=== PATIENT | female | born 1955 | race American Indian/Alaskan Native ===

== ENCOUNTER 2018-10-12 14:02 | Inpatient (IN) | payer MEDICARE ==
[2018-10-13] MEDS ORDERED: MILK OF MAGNESIA PO PRN (14:24)
[2018-10-13] MEDS ORDERED: D50W (25GM) Syringe IV PRN (14:24)
[2018-10-13] MEDS ORDERED: SENOKOT PO PRN (14:24)
[2018-10-13] MEDS ORDERED: DULCOLAX PR PRN (14:24)
--- NOTE | 2018-10-13 15:33 | History and Physical Report ---
History of Present Illness Date: 10/13/18 Referring Facility: [facility] Referring physician: Umberto Spencer MD Chief Complaint: Right MCA CVA History of present illness: 63-year-old right-hand dominant female was found on the floor with left-sided weakness by her daughter. She presented to [facility] was noted to have NIHSS of [address] showed right MCA CVA. She was outside the window for TPA however was a candidate for thrombectomy and after undergoing this procedure was admitted to the ICU. She had fairly recovery from the thrombectomy but still has left-sided weakness. Further workup with labs showed hemoglobin A1c of 10.3, LDL 173, TSH 2.014. She was noted to have elevated troponins without chest pain which was monitored and managed medically. She underwent an echo which showed 30% ejection fraction. During her stay at [facility] she was incidentally found to have a possible right lower lobe pulmonary artery occlusion and a left renal artery occlusion versus stenosis. Daughter states she was told the pulmonary artery occlusion was revisited and determined not to be an issue however I do not have paperwork to confirm that vascular surgery was consult at for the left renal artery occlusion versus severe stenosis and recommended no intervention but did ask for the patient to follow-up in clinic. She was placed on anti-coagulation level of Lovenox. Due to this she was also taken off of her prior Plavix dose. 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 Per review of records the mass has not been biopsied and a malignancy has not been ruled out however the patient's family again states that they have been told this was not cancerous in the past. Plan was also to follow-up for this mass and vascular clinic. 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 She also has a follow-up with neurology in 4-5 weeks. During examination and discussion medications with the patient she states that she does not take statins and has had muscle aches with them in the past. I offered to trial a dose of CoQ10 along with the statin however we do not carry it here. Due to her coronary artery disease and current CVA and is highly recommended that she try the statin in a controlled environment we can adjust if needed and evaluate any issues she may have wall taking it. Patient later stated she had feeling of something being stuck in her throat - LEAD RAMP AGENT will eval swallow. After the patient was medically stabilized they were transferred for further rehabilitation. All available medical records have been reviewed but there are limited records from the acute care hospital. Plan of care was discussed with patient and family. 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 denies: smoking, alcohol abuse, prescription drug abuse, IV drug use Family history: diabetes, stroke Medications and Allergies Allergies Allergy/AdvReac Type Severity Reaction Status Date / Time Tetracyclines AdvReac Unknown Unverified 10/12/18 14:07 Active Meds: Active Medications Amlodipine Besylate (Norvasc) 5 mg PO QDAY TREVIN Aspirin (Halfprin Ec) 81 mg PO QDAY TREVIN Atorvastatin Calcium (Lipitor) 80 mg PO QHS TREVIN Bisacodyl (Dulcolax) 10 mg OR QDAY PRN PRN Reason: Constipation unrelieved by MOM Dextrose (D50w (25gm) Syringe) 50 ml IV PRN PRN PRN Reason: Hypoglycemia Docusate Sodium (Colace) 100 mg PO BID TREVIN Enoxaparin Sodium (Lovenox) 60 mg 1 mg/kg (60 mg) SUB-Q Q12HR TREVIN Insulin Human Lispro (Humalog) 0 unit SUB-Q ACHS TREVIN; Protocol Loratadine (Claritin) 10 mg PO QDAY TREVIN Magnesium Hydroxide (Milk Of Magnesia) 30 ml PO Q4H PRN PRN Reason: Constipation Metoprolol Tartrate (Lopressor) 25 mg PO BID TREVIN Senna (Senokot) 8.6 mg PO Q12H PRN PRN Reason: Laxative Effect Review of Systems All systems: negative (ROS negative for 12 systems except as noted below with pertinent positives and negatives.) Constitutional: weakness, no fever, no chills Ears, nose, mouth and throat: post-nasal drip, no decreased hearing Cardiovascular: high blood pressure, no chest pain, no palpitations, no shortness of breath Respiratory: no cough, no home oxygen Gastrointestinal: constipation, no nausea, no vomiting, no diarrhea Musculoskeletal: muscle weakness, limitation of motion, gait dysfunction Integumentary: no rash, no pruritis, no wounds Neurological: lack of coordination, gait dysfunction, no numbness, no aphasia, no confusion, no double vision Endocrine: high blood sugars Exam - Exam Narrative exam: MUSCULOSKELETAL SPECIALTY EXAM CONSTITUTIONAL: Well developed, well nourished, appropriately groomed. RIGHT hand dominant. LYMPHATIC: No appreciable abnormalities palpable in neck RESPIRATORY: Clear to ascultation bilaterally, no increased work of breathing CARDIOVASCULAR: Regular Rate/ Rhythm, no swelling, edema or tenderness in BUE or BLE. Pulses palpable in all extremities. All extremities warm. GI: + bowel sounds, soft, NTTP, nondistended. INTEGUMENTARY: Normal, no lesion, rash, masses or bruising noted in extremities. MUSCULOSKELETAL: BUE and BLE normal without defect, crepitus, subluxation, effusion, arthritic changes or TTP. SA EF WE EE FF FA HF KE ADF EHL APF R 5/5 5/5 5/5 5/5 5/5 5/5 5/5 5/5 5/5 5/5 5/5 L 3/5 4-/5 4-/5 4-/5 4/5 4/5 3/5 4-/5 3/5 3/5 3/5 ROM is decreased on the left upper and lower extremities (full passive) and within functional limits on the right upper and lower extremities. Tone is decreased on the left upper and lower extremities and normal on the right upper and lower extremities. NEURO: CN II : Visual [place] full to confrontation CN II, III : PERRL CN III, IV, : EOMI CN V : Facial sensation intact CN VII : Left facial droop CN VIII : Hearing intact to finger rustle CN IX, X : Palate/uvula elevate midline, phonation normal CN XI : Intact head rotation bilaterally, decreased shoulder shrug on the left. CN XII : Tongue protrudes to the left Sensation intact in all extremities without extinction. Reflexes 2+ bilaterally at biceps, brachioradialis and patella. No clonus at ankles. Coordination intact in RUE, dysmetria noted on the LUE. No tremor noted in 4 extremities. Naming and repetition intact. Follows 2 step commands. No appreciable Aphasia or Dysarthria POSTURE and GAIT: Sitting posture good. Balance appears reasonable. Gait deferred until seen with therapy. PSYCH: Alert, orientated x3, affect appears euthymic. Insight appears intact. Assessment and Plan Assessment and plan: Patient was assessed and evaluated for Acute Inpatient Rehab Unit. Due to the patients above-mentioned medical complexity, along with decreased functional mobility and self care, this patient continues to require and be appropriate for a comprehensive, multidisciplinary [id number] rehabilitation program. These needs cannot be met in an outpatient or other less intensive setting. The patient would continue to benefit from skilled therapy intervention for at least 3 hours per day, five days a week, with davi hniques specific to the needs of the patient to improve function, activities of daily living, and reintegration into the community. The patient continues to require: -- OT to improve ROM, self-care, and learn use of adaptive equipment -- PT to improve strength and balance, functional transfers, and ambulation with energy conservation techniques to improve functional mobility -- LEAD RAMP AGENT to address cognitive deficits and swallowing ability -- 24 hour RN to ensure and prevent skin breakdown, promote progressive independence while ensuring safety, ensure education regarding medications, and incorporation of the rehabilitation at the bedside -- 24 hour Cage Fighter to coordinate this interdisciplinary program, and to manage/prevent complications as a result of the patients medical comorbidities. -Plan of care by day 4 -Weekly team conferences With such a program, there is a reasonable certainty that the goals individualized for this patient can be achieved within the specified length of stay. I69.354 CVA Non Dom L melisa:Secondary CVA prevention, discussed prognosis and need to control HTN/DM/HLD. Will monitor for shoulder hand syndrome and post stroke depression I69.391 Dysphagia:stated she was cleared at OSH but is now stating sensation of food stuck in throat - LEAD RAMP AGENT will eval I10 Hypertension: continue medications and adjust as needed for normotension E11.9 DM: Poorly controlled, A1c 10.3 at OSH, refused long acting insulin I50.9 CHF: EF 30% monitor for exacerbation and need to diurese I25.9 CAD: s/p stent, cont ASA. Plavix d/c'd due to therapeutic lovenox E78.5 Hyperlipidemia: states she does not want to take statin due to muscle aches in past N18.9 CKD: monitor renal function closely. Refused blood draws at OSH K59.00 Constipation: Bowel program started, monitor Z73.6 ADL dysfunction: OT will work on improving ability to perform ADLs (including assistive devices) to increase independence and decrease caregiver burden and improve functional transfers and mobility training. R26.2 Difficulty walking: PT will work on gait training and proper use of assistive devices and advance as appropriate to use of stairs and outside ambulation on uneven surfaces. R26.81 Unsteadiness on feet: PT will work on improving static and dynamic sitting and standing balance as well as proper use of assistive devices to decrease risk of falls. R26.89 Abnormality of gait: PT will work to improve safety and efficiency of gait through neuromotor training and gait training along with instruction on proper use of assistive devices. M62.81 Muscle weakness: PT & OT will work on strengthening exercises to improve functional strength including mixture of closed and open kinetic chain exercises. R53.81 Debility: PT & OT will work on improving overall functional status to improve participation with ADLs, mobility and social involvement. R53.83 Fatigue: PT & OT will work on improving endurance through aerobic exercises and therapeutic activity while monitoring patients tolerance for acti vity and vital signs as needed. DVT ppx: on therapeutic lovenox for renal artery stenosis and possible pulmonary artery occlusion. Pain: Continue physical modalities in therapy and pain medications as needed to achieve functional pain control. Sleep: Trazodone. Monitor and address as needed. Bowel: Monitor and address as needed. Appetite: Monitor and address as needed. Discharge planning: Pending therapy progress and care plan meeting. Will continue discussion with therapy team, SW, patient and family. Restrictions/ Precautions: Falls WB status: FWB Functional Hx: ADLs: Independent Cognition: Independent Mobility: No AD Barriers to Discharge: Decreased mobility and ability to perform self care, balance deficits, weakness Estimated Length of Stay: 14-21 days Discharge Destination: Home with family POST ADMISSION PHYSICIAN EVALUATION I have examined the patient and find that functional status, medical condition and appropriateness for IRF admission are essentially unchanged from those described in the preadmission screening. Will monitor for worsening s/s associated with the CVA, post stroke depression, shoulder hand syndrome, DVT/PE, bowel and bladder complications and complications due to CHF, DM, HTN and electrolyte abnormalities. Will attempt to avoid occurrence of these issues or treat them if they present themselves.
[2018-10-13] MEDS: HumaLOG SUB-Q SCH (17:00)
[2018-10-13] MEDS ORDERED: LANTUS SUB-Q SCH (22:00)
[2018-10-13] MEDS ORDERED: LOVENOX SUB-Q SCH (22:00)
[2018-10-13] MEDS: LOVENOX SUB-Q SCH (22:26)
[2018-10-13] MEDS: LOPRESSOR PO SCH (22:27)
[2018-10-13] MEDS: COLACE PO SCH (22:27)
[2018-10-13] MEDS: DESYREL PO SCH (22:27)
[2018-10-14] MEDS: HumaLOG SUB-Q SCH ×4 (00:41→17:32)
[2018-10-14 07:57] LABS: Basophils # (Auto) 0.1 K/mm3 (0.0-0.1); Basophils % (Auto) 0.7 % (0.0-1.8); Eosinophils # (Auto) 0.2 K/mm3 (0.0-0.4); Hematocrit 33.9 % (30.3-42.9); Hemoglobin 10.8 gm/dl (10.1-14.3); Lymphocytes # (Auto) 1.4 K/mm3 (1.2-5.4); Lymphocytes % (Auto) 17.6 % (13.4-35.0); Mean Corpuscular HGB Conc 32 % (30-34); Mean Corpuscular Volume 88 fl (79-97); Monocytes % (Auto) 12.5 % (0.0-7.3); Platelet Count 304 K/mm3 (140-440); Red Blood Count 3.85 M/mm3 (3.65-5.03); Red Cell Distribution Width 15.1 % (13.2-15.2)
[2018-10-14 08:19] LABS: Albumin 3.1 g/dL (3.9-5); Calcium 8.6 mg/dL (8.4-10.2)
[2018-10-14] MEDS: COLACE PO SCH ×2 (08:54→21:54)
[2018-10-14] MEDS: NORVASC PO SCH (08:55)
[2018-10-14] MEDS: CLARITIN PO SCH (08:55)
[2018-10-14] MEDS: HALFPRIN EC PO SCH (08:55)
[2018-10-14] MEDS: LOPRESSOR PO SCH ×2 (08:55→21:56)
[2018-10-14] MEDS: LOVENOX SUB-Q SCH ×2 (09:00→21:55)
[2018-10-14] MEDS: DESYREL PO SCH (21:56)
[2018-10-15] MEDS: HumaLOG SUB-Q SCH ×5 (00:18→22:30)
[2018-10-15] MEDS: COLACE PO SCH (07:46)
[2018-10-15] MEDS: HALFPRIN EC PO SCH (08:31)
[2018-10-15] MEDS: LOVENOX SUB-Q SCH ×3 (08:31→21:58)
[2018-10-15] MEDS: CLARITIN PO SCH (08:31)
[2018-10-15] MEDS: NORVASC PO SCH (08:31)
[2018-10-15] MEDS: LOPRESSOR PO SCH ×2 (08:31→21:58)
--- NOTE | 2018-10-15 09:54 | Progress Note ---
Subjective Date of service: 10/15/18 Principal diagnosis: Right MCA CVA Interval history: 63-year-old right-hand dominant female was found on the floor with left-sided weakness by her daughter. She presented to [facility] was noted to have NIHSS of [address] showed right MCA CVA. She was outside the window for TPA however was a candidate for thrombectomy and after undergoing this procedure was admitted to the ICU. She had fairly recovery from the thrombectomy but still has left-sided weakness. Further workup with labs showed hemoglobin A1c of 10.3, LDL 173, TSH 2.014. She was noted to have elevated troponins without chest pain which was monitored and managed medically. She underwent an echo which showed 30% ejection fraction. During her stay at [facility] she was incidentally found to have a possible right lower lobe pulmonary artery occlusion and a left renal artery occlusion versus stenosis. Daughter states she was told the pulmonary artery occlusion was revisited and determined not to be an issue however I do not have paperwork to confirm that vascular surgery was consult at for the left renal artery occlusion versus severe stenosis and recommended no intervention but did ask for the patient to follow-up in clinic. She was placed on anti-coagulation level of Lovenox. Due to this she was also taken off of her prior Plavix dose. 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 Per review of records the mass has not been biopsied and a malignancy has not been ruled out however the patient's family again states that they have been told this was not cancerous in the past. Plan was also to follow-up for this mass and vascular clinic. 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 She also has a follow-up with neurology in 4-5 weeks. Patient is participating in therapy and making reasonable progress. Taking rest breaks as needed. BM not documented, even the patient agreed to take medic ation she has now refused. We will monitor and try to intervene prior to obstruction/obstipation. Denies pain, palpitations, dyspnea, cough, N/V, weakness, or joint pain. She is very sleepy this morning likely due to trazodone. This was substituted for melatonin which we do not have but due to h er reaction to this medication we will stop it. Discussed with her the option of changing to a different statin since she is refusing Lipitor. She refused other statins including Pravachol and Crestor which typically have a decreased risk of causing myalgias. She did agree to take WelChol which should help to control her LDL and reduce risk for CVA recurrence. All records, vitals, labs and medications were reviewed. No other issues per patient, nursing or therapy. Objective - Exam Narrative Exam: MUSCULOSKELETAL SPECIALTY EXAM CONSTITUTIONAL: Well developed, well nourished, appropriately groomed. RIGHT hand dominant. RESPIRATORY: Clear to ascultation bilaterally, no increased work of breathing CARDIOVASCULAR: Regular Rate/ Rhythm, no swelling, edema or tenderness in BUE or BLE. All extremities warm. GI: + bowel sounds, soft, NTTP, nondistended. INTEGUMENTARY: Normal. MUSCULOSKELETAL: BUE and BLE normal without defect, crepitus, subluxation, effusion, arthritic changes or TTP. SA EF WE EE FF FA HF KE ADF EHL APF R 5/5 5/5 5/5 5/5 5/5 5/5 5/5 5/5 5/5 5/5 5/5 L 3/5 4-/5 4-/5 4-/5 4/5 4/5 3/5 4-/5 3/5 3/5 3/5 ROM is decreased on the left upper and lower extremities (full passive) and within functional limits on the right upper and lower extremities. Tone is decreased on the left upper and lower extremities and normal on the right upper and lower extremities. NEURO: CN II-XII grossly intact except for left facial droop, decreased shoulder shrug on the left, tongue protrudes left Sensation intact in all extremities without extinction. Coordination intact in RUE, dysmetria noted on the LUE. No tremor noted in 4 extremities. Follows 2 step commands-less so this morning due to drowsiness. POSTURE and GAIT: Sitting posture good. Balance appears reasonable. Gait deferred until seen with therapy. PSYCH: Drowsy, orientated x3, affect appears euthymic. Insight appears intact. - Allied health notes Allied health notes reviewed: nursing, PT, ST, OT FIMS assessment as documented by PT/OT/ST: Grooming Patient cleans teeth/dentures: Yes Patient condon/brushes hair: No Patient washes, rinses and Yes dries face: Patient washes, rinses and Yes dries hands: Patient performs (no make-up/ 3/4 (75%) shaving): Grooming FIM Score 3. Moderate Assistance (Patient = 50% or more) Toileting Toileting Device Commode over Toilet Toileting FIM Score 2. Maximal Assistance (Patient = 25% or more) Social interaction/Memory/Problem solving Social Interaction FIM Score 5. Supervision (Needs supv. <10%. Needs encouragement to participate.) Memory FIM Score 5. Supervision (Needs cueing <10%, stressful/ unfamiliar situations.) Problem Solving FIM Score 4. Minimal Assistance (Solves routine problems 75-90%.) Transfers Mode of Locomotion: Wheelchair Bed/Chair/Wheelchair Transfers 3. Moderate Assistance (Patient = 50% or more. FIM Score Some lifting.) Toilet Transfers FIM Score 3. Moderate Assistance (Patient = 50% or more. Some lifting.) Patient transferred to: Shower Shower Transfers FIM Score 3. Moderate Assistance (Patient = 50% or more. Some lifting.) Locomotion- Stairs Device used on Stairs Handrail/s Number of Stairs Ascended/ 2 Descended Patient used handrail/support: Yes Stairs FIM Score 1. Total Assistance (Pt. < 25%, 2 person assist, or <4 stairs.) Locomotion- walk/wheelchair Most Frequent Mode of Wheelchair Locomotion: Ambulation Distance 25 Walking FIM Score 1. Total Assistance (Pt. < 25%, 2 or more person assist, or <50 ft.) Wheelchair Propulsion Distance 50 Wheelchair FIM Score 2. Maximal Assistance (Patient = 25% or more. Minimum of 50 ft.) Eating Eating FIM Score 5. Supervision/Set-Up (Needs help w/ containers, cutting meat, etc.) Dressing-Upper body Patient retrieves clothing No items: Patient applies/removes UE n/a prosthesis or orthosis: Upper Body Dressing FIM Score 3. Moderate Assistance (Patient = 50% or more) Dressing-lower body Patient retrieves clothing No items: Patient applies/removes LE n/a prosthesis or orthosis: Lower Body Dressing FIM Score 2. Maximal Assistance (Patient = 25% or more) - Labs CBC & Chem 7: 10/14/18 07:05 10/14/18 07:05 Labs: Laboratory Results - last 72 hr 02/12/19 02/12/19 02/13/19 16:34 23:03 06:29 WBC RBC Hgb Hct MCV MCH MCHC RDW Plt Count Lymph % (Auto) [place] % (Auto) Eos % (Auto) Baso % (Auto) Lymph # [place] # Eos # Baso # Seg Neutrophils % Seg Neutrophils # Sodium Potassium Chloride Carbon Dioxide Anion Gap BUN Creatinine Estimated GFR BUN/Creatinine Ratio Glucose POC Glucose 166 H 248 H 159 H Calcium Total Bilirubin AST ALT Alkaline Phosphatase Total Protein Albumin Albumin/Globulin Ratio 10/14/18 10/14/18 10/14/18 07:05 07:05 11:53 WBC 8.0 RBC 3.85 Hgb 10.8 Hct 33.9 MCV 88 MCH 28 MCHC 32 RDW 15.1 Plt Count 304 Lymph % (Auto) 17.6 [place] % (Auto) 12.5 H Eos % (Auto) 2.0 Baso % (Auto) 0.7 Lymph # 1.4 [place] # 1.0 H Eos # 0.2 Baso # 0.1 Seg Neutrophils % 67.2 Seg Neutrophils # 5.4 Sodium 137 Potassium 4.1 Chloride 100.7 Carbon Dioxide 22 Anion Gap 18 BUN 26 H Creatinine 1.3 H Estimated GFR 50 BUN/Creatinine Ratio 20 Glucose 172 H POC Glucose 157 H Calcium 8.6 Total Bilirubin 0.30 AST 43 H ALT 89 H Alkaline Phosphatase 256 H Total Protein 6.1 L Albumin 3.1 L Albumin/Globulin Ratio 1.0 10/14/18 10/14/18 10/15/18 17:06 23:12 06:11 WBC RBC Hgb Hct MCV MCH MCHC RDW Plt Count Lymph % (Auto) [place] % (Auto) Eos % (Auto) Baso % (Auto) Lymph # [place] # Eos # Baso # Seg Neutrophils % Seg Neutrophils # Sodium Potassium Chloride Carbon Dioxide Anion Gap BUN Creatinine Estimated GFR BUN/Creatinine Ratio Glucose POC Glucose 193 H 169 H 124 H Calcium Total Bilirubin AST ALT Alkaline Phosphatase Total Protein Albumin Albumin/Globulin Ratio Assessment and Plan I69.354 CVA Non Dom L melisa:Secondary CVA prevention, discussed prognosis and need to control HTN/DM/HLD. Will monitor for shoulder hand syndrome and post stroke depression. Refusing statin, have started WelChol. 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 Plavix d/c'd due to therapeutic lovenox E78.5 Hyperlipidemia: states she does not want to take statin due to muscle aches in past, refused other statins that are less likely to cause problems. Agreed to try WelChol. N18.9 CKD: monitor renal function closely. Refused blood draws at OSH K59.00 Constipation: Bowel program started, but she is refusing medications. Monitor Z73.6 ADL dysfunction: OT will work on improving ability to perform ADLs (including assistive devices) to increase independence and decrease caregiver burden and improve functional transfers and mobility training. R26.2 Difficulty walking: PT will work on gait training and proper use of assistive devices and advance as appropriate to use of stairs and outside ambulation on uneven surfaces. R26.81 Unsteadiness on feet: PT will work on improving static and dynamic sitting and standing balance as well as proper use of assistive devices to decrease risk of falls. R26.89 Abnormality of gait: PT will work to improve safety and efficiency of gait through neuromotor training and gait training along with instruction on proper use of assistive devices. M62.81 Muscle weakness: PT & OT will work on strengthening exercises to improve functional strength including mixture of closed and open kinetic chain exercises. R53.81 Debility: PT & OT will work on improving overall functional status to improve participation with ADLs, mobility and social involvement. R53.83 Fatigue: PT & OT will work on improving endurance through aerobic exercises and therapeutic activity while monitoring patients tolerance for activity and vital signs as needed. DVT ppx: on therapeutic lovenox for renal artery stenosis and possible pulmonary artery occlusion. Pain: Continue physical modalities in therapy and pain medications as needed to achieve functional pain control. Sleep: Monitor and address as needed. Previously on melatonin which we do not carry, low-dose trazodone seems to make her too drowsyhave DC'd Bowel: Monitor and address as needed. Appetite: Monitor and address as needed. Discharge planning: Pending therapy progress and care plan meeting. Will continue discussion with therapy team, SW, patient and family. Restrictions/ Precautions: Falls WB status: FWB Functional Hx: ADLs: Independent Cognition: Independent Mobility: No AD Barriers to Discharge: Decreased mobility and ability to perform self care, balance deficits, weakness Estimated Length of Stay: 14-21 days Discharge Destination: Home with family
[2018-10-15] MEDS: WELCHOL PO SCH (22:08)
[2018-10-16] MEDS: HALFPRIN EC PO SCH (08:27)
[2018-10-16] MEDS: WELCHOL PO SCH (08:27)
[2018-10-16] MEDS: LOPRESSOR PO SCH ×2 (08:27→22:12)
[2018-10-16] MEDS: CLARITIN PO SCH (08:28)
[2018-10-16] MEDS: NORVASC PO SCH (08:28)
[2018-10-16] MEDS: HumaLOG SUB-Q SCH ×4 (08:29→22:09)
[2018-10-16] MEDS: LOVENOX SUB-Q SCH ×2 (09:30→22:10)
--- NOTE | 2018-10-16 11:42 | Progress Note ---
Subjective Date of service: 10/16/18 Principal diagnosis: Right MCA CVA Interval history: 63-year-old right-hand dominant female was found on the floor with left-sided weakness by her daughter. She presented to [facility] was noted to have NIHSS of [address] showed right MCA CVA. She was outside the window for TPA however was a candidate for thrombectomy and after undergoing this procedure was admitted to the ICU. She had fairly recovery from the thrombectomy but still has left-sided weakness. Further workup with labs showed hemoglobin A1c of 10.3, LDL 173, TSH 2.014. She was noted to have elevated troponins without chest pain which was monitored and managed medically. She underwent an echo which showed 30% ejection fraction. 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 Daughter states she was told the pulmonary artery occlusion was revisited and determined not to be an issue however I do not have paperwork to confirm that vascular surgery was consult at for the left renal artery occlusion versus severe stenosis and recommended no intervention but did ask for the patient to follow-up in clinic. She was placed on anti-coagulation level of Lovenox. Due to this she was also taken off of her prior Plavix dose. 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 Per review of records the mass has not been biopsied and a malignancy has not been ruled out however the patient's family again states that they have been told this was not cancerous in the past. Plan was also to follow-up for this mass and vascular clinic. Patient is a Sabianism and does not want any blood products. She also has a follow-up with neurology in 4-5 weeks. Patient is participating in therapy and making reasonable progress. Taking rest breaks as needed. BM not documented, and she states that she has not had a bowel movement since her admission to the outside hospital. Denies nausea vomiting but does have a feeling of fullness, abdomen is soft, positive flatus. We will order a KUB to rule out obstruction. She states she did not get suppository that was ordered for yesterday. Ask nursing to her again today. Denies pain, palpitations, dyspnea, cough, N/V, weakness, or joint pain. She is more awake since discontinuing trazodone. She did not like the size of the pill of WelChol so we change that to Questran. Repeat labs have been ordered. Had a prolonged discussion with her daughter yesterday evening prior to leaving concerning various medications. Again discussed with patient her need to be compliant with our attempts to manage her blood glucose and cholesterol in order to reduce her risk of recurrent stroke. She states she is agreeable to taking a long acting insulin now. We will monitor her overnight and start her on something tomorrow based on where her lab values have been. All records, vitals, labs and medications were reviewed. No other issues per patient, nursing or therapy. Objective - Exam Narrative Exam: MUSCULOSKELETAL SPECIALTY EXAM CONSTITUTIONAL: Well developed, well nourished, appropriately groomed. RIGHT hand dominant. RESPIRATORY: Clear to ascultation bilaterally, no increased work of breathing CARDIOVASCULAR: Regular Rate/ Rhythm, no swelling, edema or tenderness in BUE or BLE. All extremities warm. GI: + bowel sounds, soft, NTTP, nondistended. INTEGUMENTARY: Normal. MUSCULOSKELETAL: BUE and BLE normal without defect, crepitus, subluxation, effusion, arthritic changes or TTP. SA EF WE EE FF FA HF KE ADF EHL APF R 5/5 5/5 5/5 5/5 5/5 5/5 5/5 5/5 5/5 5/5 5/5 L 3/5 4-/5 4-/5 4-/5 4/5 4/5 3/5 4-/5 3/5 3/5 3/5 ROM is decreased on the left upper and lower extremities (full passive) and wit hin functional limits on the right upper and lower extremities. Tone is decreased on the left upper and lower extremities and normal on the right upper and lower extremities. NEURO: CN II-XII grossly intact except for left facial droop, decreased shoulder shrug on the left, tongue protrudes left Sensation intact in all extremities without extinction. Coordination intact in RUE, dysmetria noted on the LUE. No tremor noted in 4 extremities. Follows 2 step commands POSTURE and GAIT: Sitting posture good. Balance appears reasonable. Gait deferred until seen with therapy. PSYCH: Awake, orientated x3, affect appears euthymic. Insight appears intact. - Constitutional Vitals: Vital Signs - 12hr 02/10/16/18 10/16/18 05:21 07:35 08:27 Temperature 36.8 C 36.9 C Pulse Rate 76 79 79 Respiratory 18 16 Rate Blood Pressure 118/74 136/88 Blood Pressure 136/88 [Right] O2 Sat by Pulse 99 98 Oximetry 10/16/18 08:28 Temperature Pulse Rate 79 Respiratory Rate Blood Pressure 136/88 Blood Pressure [Right] O2 Sat by Pulse Oximetry - Allied health notes Allied health notes reviewed: nursing, PT, ST, OT FIMS assessment as documented by PT/OT/ST: Grooming Patient cleans teeth/dentures: Yes Patient condon/brushes hair: No Patient washes, rinses and Yes dries face: Patient washes, rinses and Yes dries hands: Patient performs (no make-up/ 3/4 (75%) shaving): Grooming FIM Score 3. Moderate Assistance (Patient = 50% or more) Toileting Toileting Device Commode over Toilet Toileting FIM Score 2. Maximal Assistance (Patient = 25% or more) Social interaction/Memory/Problem solving Social Interaction FIM Score 7. Complete [place] (Interacts appropriately. Controls temper.) Memory FIM Score 7. Complete [place] (Remembers people and routines.) Problem Solving FIM Score 6. Mod. [place] (Mild difficulty or needs more time w/ complex.) Transfers Mode of Locomotion: Wheelchair Bed/Chair/Wheelchair Transfers 3. Moderate Assistance (Patient = 50% or more. FIM Score Some lifting.) Toilet Transfers FIM Score 3. Moderate Assistance (Patient = 50% or more. Some lifting.) Patient transferred to: Shower Shower Transfers FIM Score 3. Moderate Assistance (Patient = 50% or more. Some lifting.) Locomotion- Stairs Device used on Stairs Handrail/s Number of Stairs Ascended/ 2 Descended Patient used handrail/support: Yes Stairs FIM Score 1. Total Assistance (Pt. < 25%, 2 person assist, or <4 stairs.) Locomotion- walk/wheelchair Most Frequent Mode of Wheelchair Locomotion: Ambulation Distance 25 Walking FIM Score 1. Total Assistance (Pt. < 25%, 2 or more person assist, or <50 ft.) Wheelchair Propulsion Distance 50 Wheelchair FIM Score 2. Maximal Assistance (Patient = 25% or more. Minimum of 50 ft.) Eating Eating FIM Score 5. Supervision/Set-Up (Needs help w/ c ontainers, cutting meat, etc.) Dressing-Upper body Patient retrieves clothing No items: Patient applies/removes UE n/a prosthesis or orthosis: Upper Body Dressing FIM Score 3. Moderate Assistance (Patient = 50% or more) Dressing-lower body Patient retrieves clothing No items: Patient applies/removes LE n/a prosthesis or orthosis: Lower Body Dressing FIM Score 2. Maximal Assistance (Patient = 25% or more) - Labs CBC & Chem 7: 10/14/18 07:05 10/14/18 07:05 Labs: Laboratory Results - last 72 hr 10/13/18 10/13/18 10/14/18 16:34 23:03 06:29 WBC RBC Hgb Hct MCV MCH MCHC RDW Plt Count Lymph % (Auto) [place] % (Auto) Eos % (Auto) Baso % (Auto) Lymph # [place] # Eos # Baso # Seg Neutrophils % Seg Neutrophils # Sodium Potassium Chloride Carbon Dioxide Anion Gap BUN Creatinine Estimated GFR BUN/Creatinine Ratio Glucose POC Glucose 166 H 248 H 159 H Calcium Total Bilirubin AST ALT Alkaline Phosphatase Total Protein Albumin Albumin/Globulin Ratio 10/14/18 10/14/18 10/14/18 07:05 07:05 11:53 WBC 8.0 RBC 3.85 Hgb 10.8 Hct 33.9 MCV 88 MCH 28 MCHC 32 RDW 15.1 Plt Count 304 Lymph % (Auto) 17.6 [place] % (Auto) 12.5 H Eos % (Auto) 2.0 Baso % (Auto) 0.7 Lymph # 1.4 [place] # 1.0 H Eos # 0.2 Baso # 0.1 Seg Neutrophils % 67.2 Seg Neutrophils # 5.4 Sodium 137 Potassium 4.1 Chloride 100.7 Carbon Dioxide 22 Anion Gap 18 BUN 26 H Creatinine 1.3 H Estimated GFR 50 BUN/Creatinine Ratio 20 Glucose 172 H POC Glucose 157 H Calcium 8.6 Total Bilirubin 0.30 AST 43 H ALT 89 H Alkaline Phosphatase 256 H Total Protein 6.1 L Albumin 3.1 L Albumin/Globulin Ratio 1.0 10/14/18 10/14/18 10/15/18 17:06 23:12 06:11 WBC RBC Hgb Hct MCV MCH MCHC RDW Plt Count Lymph % (Auto) [place] % (Auto) Eos % (Auto) Baso % (Auto) Lymph # [place] # Eos # Baso # Seg Neutrophils % Seg Neutrophils # Sodium Potassium Chloride Carbon Dioxide Anion Gap BUN Creatinine Estimated GFR BUN/Creatinine Ratio Glucose POC Glucose 193 H 169 H 124 H Calcium Total Bilirubin AST ALT Alkaline Phosphatase Total Protein Albumin Albumin/Globulin Ratio 10/15/18 10/15/18 10/15/18 11:15 16:37 21:50 WBC RBC Hgb Hct MCV MCH MCHC RDW Plt Count Lymph % (Auto) [place] % (Auto) Eos % (Auto) Baso % (Auto) Lymph # [place] # Eos # Baso # Seg Neutrophils % Seg Neutrophils # Sodium Potassium Chloride Carbon Dioxide Anion Gap BUN Creatinine Estimated GFR BUN/Creatinine Ratio Glucose POC Glucose 183 H 157 H 203 H Calcium Total Bilirubin AST ALT Alkaline Phosphatase Total Protein Albumin Albumin/Globulin Ratio 10/16/18 07:49 WBC RBC Hgb Hct MCV MCH MCHC RDW Plt Count Lymph % (Auto) [place] % (Auto) Eos % (Auto) Baso % (Auto) Lymph # [place] # Eos # Baso # Seg Neutrophils % Seg Neutrophils # Sodium Potassium Chloride Carbon Dioxide Anion Gap BUN Creatinine Estimated GFR BUN/Creatinine Ratio Glucose POC Glucose 167 H Calcium Total Bilirubin AST ALT Alkaline Phosphatase Total Protein Albumin Albumin/Globulin Ratio - Imaging and cardiology Abdominal x-ray: pending Assessment and Plan I69.354 CVA Non Dom L melisa:Secondary CVA prevention, discussed prognosis and n eed to control HTN/DM/HLD. Will monitor for shoulder hand syndrome and post stroke depression. Refusing statin, have started WelChol. I69.391 Dysphagia: SOLE RUFFER noted oral phase dysphagia of but no evidence of aspiration, recommended small bites and sitting upright I10 Hypertension: continue medications and adjust as needed for normotension E11.9 DM: Poorly controlled, A1c 10.3 at OSH, refused long acting insulin I50.9 CHF: EF 30% monitor for exacerbation and need to diurese I25.9 CAD: s/p stent, cont ASA. Plavix d/c'd at OSH due to therapeutic lovenox E78.5 Hyperlipidemia: states she does not want to take statin due to muscle aches in past, refused other statins that are less likely to cause problems. Agreed to try Questran, welchol pills were too large. N18.9 CKD: monitor renal function closely. Refused blood draws at OSH K59.00 Constipation: Bowel program started, but she is refusing medications. Monitor. KUB ordered, suppository ordered Z73.6 ADL dysfunction: OT will work on improving ability to perform ADLs (including assistive devices) to increase independence and decrease caregiver burden and improve functional transfers and mobility training. R26.2 Difficulty walking: PT will work on gait training and proper use of assistive devices and advance as appropriate to use of stairs and outside ambulation on uneven surfaces. R26.81 Unsteadiness on feet: PT will work on improving static and dynamic sitting and standing balance as well as proper use of assistive devices to dec rease risk of falls. R26.89 Abnormality of gait: PT will work to improve safety and efficiency of ga it through neuromotor training and gait training along with instruction on proper use of assistive devices. M62.81 Muscle weakness: PT & OT will work on strengthening exercises to improve functional strength including mixture of closed and open kinetic chain exercises. R53.81 Debility: PT & OT will work on improving overall functional status to improve participation with ADLs, mobility and social involvement. R53.83 Fatigue: PT & OT will work on improving endurance through aerobic exercises and therapeutic activity while monitoring patients tolerance for activity and vital signs as needed. DVT ppx: on therapeutic lovenox for renal artery stenosis and possible pulmonary artery occlusion. Pain: Continue physical modalities in therapy and pain medications as needed to achieve functional pain control. Sleep: Monitor and address as needed. Previously on melatonin which we do not carry, low-dose trazodone seems to make her too drowsyhave DC'd Bowel: Monitor and address as needed. Appetite: Monitor and address as needed. Discharge planning: Pending therapy progress and care plan meeting. Will continue discussion with therapy team, SW, patient and family. Restrictions/ Precautions: Falls WB status: FWB Functional Hx: ADLs: Independent Cognition: Independent Mobility: No AD Barriers to Discharge: Decreased mobility and ability to perform self care, balance deficits, weakness Estimated Length of Stay: 14-21 days Discharge Destination: Home with family
--- NOTE | 2018-10-16 11:46 | IRU Plan of Care ---
Interdisciplinary Plan of Care - IP IRU INTERDISCIPLINARY PLAN: [facility] Inpatient Rehab Unit Plan of Care IRU Interdisciplinary Care Plan Start: 10/13/18 15:47 Freq: Admission then PRN Status: Active Protocol: Document 10/16/18 08:51 TH (Rec: 10/16/18 08:59 TH [id number]) Interdisciplinary Problem List Interdisciplinary Problem List Interdisciplinary Problem List Impaired Eating/Swallowing Query Text:Answers will Trigger Problems Impaired Bathing/Grooming and Outcomes on Worklist. Impaired Dressing Impaired Mobility Impaired Transfers Impaired Toileting Knowledge Deficits Impaired Safety Diabetes Education IRU Interdisciplinary Care Plan Therapy Services Therapy Services Will Include: Physical Therapy Query Text:Patient will be seen for a Occupational Therapy minimum of 3 hours of daily therapy 5 Speech Therapy out of 7 days a week. Therapy intensity may be adjusted within a 7 consecutive day period to effectively serve the individual needs of the patient. Treatment Frequency/Intensity/Duration Treatment Frequency 3 hours per day Treatment Intensity 5 days/week Treatment Duration 14-21 days. Problem Area: Eating/Swallowing Eating/Swallowing Outcomes Eating/Swallowing Interventions Problem Area: Bathing/Grooming Bathing/Grooming Outcomes Improve [place] w/ Grooming Improve [place] w/ Bathing Bathing/Grooming Interventions ADL Training Use of Assistive Devices Therapeutic Exercise Therapeutic Activity Neuromuscular Re-Education Balance Work Activity Tolerance Work Patient/Caregiver Education Problem Area: Dressing Dressing Outcomes Improve [place] w/ UB Dressing Improve [place] w/ LB Dressing Dressing Interventions ADL Training Use of Assistive Devices Neuromuscular Re-Education Therapeutic Exercise Balance Work Modalities Patient/Caregiver Education Problem Area: Mobility Mobility Outcomes Improve [place] w/ Bed Mobility Improve [place] w/ Ambulation Improve [place] w/ Stairs /Curb Improve [place] w/ Wheelchair Mobility Interventions Therapeutic Exercise Neuromuscular Re-Ed. Modalities Use of Assistive Devices Patient/Caregiver Education Bed Mobility Work Gait Training W/C Mobility Work Problem Area: Transfers Transfers Outcomes Improve [place] w/ Bed Transfers Improve [place] w/ Toilet Transfers Improve [place] w/ Tub/ Shower Transfers Improve [place] w/ Car Transfers Transfers Interventions Transfer Training Therapeutic Exercise Neuromuscular Re-Education Modalities Use of Assistive Devices Patient/Caregiver Education Problem Area: Bowel/Bladder Managment Bowel/Bladder Outcomes Bowel/Bladder Interventions Problem Area: Toileting Toileting Outcomes Improve [place] w/ Toileting Toileting Interventions ADL Training Balance Work Use of Assistive Devices Patient/Caregiver Education Problem Area: Nutrition Nutrition Outcomes Nutrition Interventions Problem Area: Comprehension Comprehension Outcomes Comprehension Interventions Problem Area: Expression Expression Outcomes Expression Interventions Problem Area: Problem Solving Problem Solving Outcomes Problem Solving Interventions Problem Area: Memory Memory Outcomes Memory Interventions Problem Area: Pain Management Pain Management Outcomes Pain Management Interventions Problem Area: Knowledge Deficits Knowledge Deficits Outcomes Knowledge Deficits Interventions Problem Area: Skin/Tissue Integrity Skin/Tissue Integrity Outcomes Skin/Tissue Integrity Interventions Problem Area: Social Interaction Social Interaction Outcomes Social Interaction Interventions Problem Area: Adjustment to Disability Adjustment to Disability Outcomes Adjustment to Disability Interventions Problem Area: Discharge Concerns Discharge Concerns Outcomes Discharge w/ Necessary Equipment Have Home Health/Outpatient Services Discharge Concerns Interventions Discharge Planning Family/Caregiver Conference Family/Caregiver Training Problem Area: Community Reintegration Community Reintegration Outcomes Community Reintegration Interventions Problem Area: Home Management Home Management Outcomes Improve [place] w/ Home Management Home Management Interventions Clothing Care Activity Tolerance Work Patient/Caregiver Education Problem Area: Safety Safety Outcomes Provide Safe Environment Perform Selfcare Safely Demonstrate Good Safety w/ Transfers/Mobility Safety Interventions Identify Fall Risk [place] Pt. to Environment Reduce Environmental Hazards Problem Area: Medication Education Medication Education Outcomes Patient/Caregiver will Verbalize Understanding of Medications Medication Education Interventions Explain Administration/Side Effects/Interactions Problem Area: Diabetes Education Diabetes Education Outcomes Demonstrate Knowledge of Resources Availlable in Diabetic Ed. Folder Diabetes Education Interventions Discuss Pathophysiology of Diabetes Problem Area: Oxygenation Oxygenation Outcomes Oxygenation Interventions Problem Area: Cardiovascular Cardiovascular Outcomes Cardiovascular Interventions Physician Only Medical Prognosis and Rehabilitation Potential (Completed by Physician) Fair medical prognosis and good rehab potential. Patient is refusing some medications, mainly statins and bowel medications. We have switched to a bile acids clustering agent as an alternative. Have discussed need for much better glucose control. If the patient is able to maintain good glucose control, blood pressure control, and continue to use her secondary stroke prevention measures she has a good chance of continued recovery. On the other hand if she refuses to take the steps her overall prognosis is less than stated and she puts herself at risk of another CVA. These risk have been communicated both to her and her daughter. We'll continue to encourage her to take every step possible to reduce her risk for recurrent CVA. This plan of care has been developed based on the findings from the pre- admission assessment, post admission physician evaluation, information gathered from the assessments from all therapy disciplines and other pertinent clinicians. The plan of care has been reviewed and discussed in collaboration with the interdisciplinary team. The plan of care will be reviewed and updated at least weekly.
--- NOTE | 2018-10-16 13:37 | XRay Report ---
AP ABDOMEN: HISTORY: Constipation. There is moderate stool throughout the colon and rectum. The abdominal gas pattern is unremarkable. No masses or organomegaly is identified and there is no gross evidence of free air or fluid. No significant soft tissue calcifications are noted. Cholecystectomy changes are noted. IMPRESSION: Fecal retention.
[2018-10-16] MEDS ORDERED: DULCOLAX PR ONE (14:00)
[2018-10-16] MEDS: QUESTRAN PO SCH ×2 (15:33→22:12)
[2018-10-17 07:55] LABS: BUN/Creatinine Ratio 20; Blood Urea Nitrogen 22 mg/dL (7-17); Hemolysis Index 6
[2018-10-17] MEDS: LOVENOX SUB-Q SCH ×2 (09:23→21:35)
[2018-10-17] MEDS: CLARITIN PO SCH (09:23)
[2018-10-17] MEDS: HALFPRIN EC PO SCH (09:23)
[2018-10-17] MEDS: LOPRESSOR PO SCH ×2 (09:23→21:34)
[2018-10-17] MEDS: NORVASC PO SCH (09:23)
[2018-10-17] MEDS: HumaLOG SUB-Q SCH ×4 (09:24→21:41)
[2018-10-17] MEDS: QUESTRAN PO SCH ×2 (09:24→21:35)
--- NOTE | 2018-10-17 09:25 | Progress Note ---
Subjective Date of service: 10/17/18 Principal diagnosis: Right MCA CVA Interval history: 63-year-old right-hand dominant female was found on the floor with left-sided weakness by her daughter. She presented to [facility] was noted to have NIHSS of [address] showed right MCA CVA. She was outside the window for TPA however was a candidate for thrombectomy and after undergoing this procedure was admitted to the ICU. She had fairly recovery from the thrombectomy but still has left-sided weakness. Further workup with labs showed hemoglobin A1c of 10.3, LDL 173, TSH 2.014. She was noted to have elevated troponins without chest pain which was monitored and managed medically. She underwent an echo which showed 30% ejection fraction. During her stay at [facility] she was incidentally found to have a possible right lower lobe pulmonary artery occlusion and a left renal artery occlusion versus stenosis. Daughter states she was told the pulmonary artery occlusion was revisited and determined not to be an issue however I do not have paperwork to confirm that vascular surgery was consult at for the left renal artery occlusion versus severe stenosis and recommended no intervention but did ask for the patient to follow-up in clinic. She was placed on anti-coagulation level of Lovenox. Due to this she was also taken off of her prior Plavix dose. 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 Per review of records the mass has not been biopsied and a malignancy has not been ruled out however the patient's family again states that they have been told this was not cancerous in the past. Plan was also to follow-up for this mass and vascular clinic. Patient is a Faith and does not want any blood products. She also has a follow-up with neurology in 4-5 weeks. Patient is participating in therapy and making reasonable progress. Taking rest breaks as needed. KUB showed increased amount of stool burden throughout most colon. Multiple BMs last night after suppository. Patient states that she feels better, no longer has full feeling or pain. Denies pain, palpitations, dyspnea, cough, N/V, weakness, or joint pain. No signs of shoulder hand syndrome. CN exam stable. Documented that she refused Questran yesterday because the daughter did not want her to have the medication. Spoke with the daughter via phone last night and she denies this. Nurse states that was the conversation they had. At any rate, patient and daughter and nurse are all on board for taking Questran. Based on most recent blood glucose values and decreased oral intake, we'll continue to monitor her on sliding scale prior to implementing Lantus. I am still concerned about issues that were not fully worked up at OSH that may be concerning for malignancy. Will discuss further with patient and daughter to ensure there was adequate investigation previously. All records, vitals, labs and medications were reviewed. No other issues per patient, nursing or therapy. Objective - Exam Narrative Exam: MUSCULOSKELETAL SPECIALTY EXAM CONSTITUTIONAL: Well developed, well nourished, appropriately groomed. RIGHT hand dominant. RESPIRATORY: Clear to ascultation bilaterally, no increased work of breathing CARDIOVASCULAR: Regular Rate/ Rhythm, no swelling, edema or tenderness in BUE or BLE. All extremities warm. GI: + bowel sounds, soft, NTTP, nondistended. INTEGUMENTARY: Normal. MUSCULOSKELETAL: BUE and BLE normal without defect, crepitus, subluxation, effusion, arthritic changes or TTP. SA EF WE EE FF FA HF KE ADF EHL APF R 5/5 5/5 5/5 5/5 5/5 5/5 5/5 5/5 5/5 5/5 5/5 L 3/5 4-/5 4-/5 4-/5 4/5 4/5 3/5 4-/5 3- /5 3/5 3/5 ROM is decreased on the left upper and lower extremities (full passive) and within functional limits on the right upper and lower extremities. Tone is decreased on the left upper and lower extremities and normal on the right upper and lower extremities. NEURO: CN II-XII grossly intact except for left facial droop, decreased shoulder shrug on the left, tongue protrudes left Sensation intact in all extremities without extinction. Coordination intact in RUE, dysmetria noted on the LUE. No tremor noted in 4 extremities. Follows 2 step commands POSTURE and GAIT: Sitting posture good. Balance appears reasonable. Leans left, ambulates short distance PSYCH: Awake, orientated x3, affect appears euthymic. Insight appears intact. - Constitutional Vitals: Vital Signs - 12hr 10/16/18 10/16/18 10/17/18 22:00 22:12 04:32 Temperature 37.1 C Pulse Rate 99 H 83 Respiratory 18 18 Rate Blood Pressure 135/99 111/81 O2 Sat by Pulse 91 Oximetry 10/17/18 08:19 Temperature 36.9 C Pulse Rate 86 Respiratory 18 Rate Blood Pressure 125/88 O2 Sat by Pulse 93 Oximetry - Allied health notes Allied health notes reviewed: nursing, PT, ST, OT FIMS assessment as documented by PT/OT/ST: Grooming Patient cleans teeth/dentures: Yes Patient condon/brushes hair: No Patient washes, rinses and Yes dries face: Patient washes, rinses and Yes dries hands: Patient performs (no make-up/ 3/4 (75%) shaving): Grooming FIM Score 3. Moderate Assistance (Patient = 50% or more) Toileting Toileting Device Commode over Toilet Toileting FIM Score 2. Maximal Assistance (Patient = 25% or more) Social interaction/Memory/Problem solving Social Interaction FIM Score 7. Complete [place] (Interacts appropriately. Controls temper.) Memory FIM Score 7. Complete [place] (Remembers people and routines.) Problem Solving FIM Score 6. Mod. Ruby (Mild difficulty or needs more time w/ complex.) Transfers Mode of Locomotion: Wheelchair Bed/Chair/Wheelchair Transfers 3. Moderate Assistance (Patient = 50% or more. FIM Score Some lifting.) Toilet Transfers FIM Score 3. Moderate Assistance (Patient = 50% or more. Some lifting.) Patient transferred to: Shower Shower Transfers FIM Score 3. Moderate Assistance (Patient = 50% or more. Some lifting.) Locomotion- Stairs Device used on Stairs Handrail/s Number of Stairs Ascended/ 2 Descended Patient used handrail/support: Yes Stairs FIM Score 1. Total Assistance (Pt. < 25%, 2 person assist, or <4 stairs.) Locomotion- walk/wheelchair Most Frequent Mode of Wheelchair Locomotion: Ambulation Distance 25 Walking FIM Score 1. Total Assistance (Pt. < 25%, 2 or more person assist, or <50 ft.) Wheelchair Propulsion Distance 50 Wheelchair FIM Score 2. Maximal Assistance (Patient = 25% or more. Minimum of 50 ft.) Eating Eating FIM Score 5. Supervision/Set-Up (Needs help w/ containers, cutting meat, etc.) Dressing-Upper body Patient retrieves clothing No items: Patient applies/removes UE n/a prosthesis or orthosis: Upper Body Dressing FIM Score 3. Moderate Assistance (Patient = 50% or more) Dressing-lower body Patient retrieves clothing No items: Patient applies/removes LE n/a prosthesis or orthosis: Lower Body Dressing FIM Score 2. Maximal Assistance (Patient = 25% or more) - Labs CBC & Chem 7: 10/14/18 07:05 10/17/18 06:37 Labs: Laboratory Results - last 72 hr 10/14/18 10/14/18 10/14/18 11:53 17:06 23:12 Sodium Potassium Chloride Carbon Dioxide Anion Gap BUN Creatinine Estimated GFR BUN/Creatinine Ratio Glucose POC Glucose 157 H 193 H 169 H Calcium 10/15/18 10/15/18 10/15/18 06:11 11:15 16:37 Sodium Potassium Chloride Carbon Dioxide Anion Gap BUN Creatinine Estimated GFR BUN/Creatinine Ratio Glucose POC Glucose 124 H 183 H 157 H Calcium 10/15/18 10/16/18 10/16/18 21:50 07:49 12:17 Sodium Potassium Chloride Carbon Dioxide Anion Gap BUN Creatinine Estimated GFR BUN/Creatinine Ratio Glucose POC Glucose 203 H 167 H 136 H Calcium 10/16/18 10/16/18 10/16/18 14:35 17:01 21:05 Sodium Potassium Chloride Carbon Dioxide Anion Gap BUN Creatinine Estimated GFR BUN/Creatinine Ratio Glucose POC Glucose 145 H 138 H 188 H Calcium 10/17/18 10/17/18 06:37 08:21 Sodium 136 L Potassium 4.5 Chloride 99.8 Carbon Dioxide 20 L Anion Gap 21 BUN 22 H Creatinine 1.1 Estimated GFR > 60 BUN/Creatinine Ratio 20 Glucose 208 H POC Glucose 206 H Calcium 9.0 - Imaging and cardiology Abdominal x-ray: report reviewed, image reviewed Assessment and Plan I69.354 CVA Non Dom L melisa:Secondary CVA prevention, discussed prognosis and need to control HTN/DM/HLD. Will monitor for shoulder hand syndrome and post stroke depression. Refusing statin, have started Questran. I69.391 Dysphagia: DIE FORGER noted oral phase dysphagia of but no evidence of aspiration, recommended small bites and sitting upright M21.372 Left foot drop: AFO, continue therapy. May need custom AFO in future. Monitor I10 Hypertension: continue medications and adjust as needed for normotension E11.9 DM: Poorly controlled, A1c 10.3 at OSH, refused long acting insulin, agreeing to take here if needed I50.9 CHF: EF 30% monitor for exacerbation and need to diurese I25.9 CAD: s/p stent, cont ASA. Plavix d/c'd at OSH due to therapeutic lovenox E78.5 Hyperlipidemia: states she does not want to take statin due to muscle aches in past, refused other statins that are less likely to cause problems. Agreed to try Questran, welchol pills were too large. N18.9 CKD: monitor renal function closely. Refused blood draws at OSH K59.00 Constipation: Bowel program started, but she is refusing medications. Monitor. KUB ordered, suppository ordered Z73.6 ADL dysfunction: OT will work on improving ability to perform ADLs (inc luding assistive devices) to increase independence and decrease caregiver burden and improve functional transfers and mobility training. R26.2 Difficulty walking: PT will work on gait training and proper use of assistive devices and advance as appropriate to use of stairs and outside ambulation on uneven surfaces. R26.81 Unsteadiness on feet: PT will work on improving static and dynamic sitting and standing balance as well as proper use of assistive devices to decrease risk of falls. R26.89 Abnormality of gait: PT will work to improve safety and efficiency of gait through neuromotor training and gait training along with instruction on proper use of assistive devices. M62.81 Muscle weakness: PT & OT will work on strengthening exercises to improve functional strength including mixture of closed and open kinetic chain exercises. R53.81 Debility: PT & OT will work on improving overall functional status to improve participation with ADLs, mobility and social involvement. R53.83 Fatigue: PT & OT will work on improving endurance through aerobic exercises and therapeutic activity while monitoring patients tolerance for activity and vital signs as needed. DVT ppx: on therapeutic lovenox for renal artery stenosis and possible pulmonary artery occlusion. Pain: Continue physical modalities in therapy and pain medications as needed to achieve functional pain control. Sleep: Monitor and address as needed. Previously on melatonin which we do not carry, low-dose trazodone seems to make her too drowsyhave DC'd Bowel: Monitor and address as needed. Appetite: Monitor and address as needed. Discharge planning: Pending therapy progress and care plan meeting. Will continue discussion with therapy team, SW, patient and family. Restrictions/ Precautions: Falls WB status: FWB Functional Hx: ADLs: Independent Cognition: Independent Mobility: No AD Barriers to Discharge: Decreased mobility and ability to perform self care, balance deficits, weakness Estimated Length of Stay: 14-21 days Discharge Destination: Home with family
[2018-10-18] MEDS: HumaLOG SUB-Q SCH ×4 (07:08→21:54)
[2018-10-18] MEDS: QUESTRAN PO SCH ×2 (08:08→21:14)
[2018-10-18] MEDS: LOVENOX SUB-Q SCH ×2 (11:44→21:14)
[2018-10-18] MEDS: HALFPRIN EC PO SCH (12:34)
[2018-10-18] MEDS: LOPRESSOR PO SCH ×2 (12:35→21:15)
[2018-10-18] MEDS: CLARITIN PO SCH (12:35)
[2018-10-18] MEDS: NORVASC PO SCH (12:36)
[2018-10-19] MEDS: HumaLOG SUB-Q SCH ×4 (08:44→23:07)
[2018-10-19] MEDS: NORVASC PO SCH (09:43)
[2018-10-19] MEDS: LOPRESSOR PO SCH ×2 (09:43→23:06)
[2018-10-19] MEDS: CLARITIN PO SCH (09:44)
[2018-10-19] MEDS: HALFPRIN EC PO SCH (09:44)
[2018-10-19] MEDS: QUESTRAN PO SCH ×2 (09:44→23:06)
[2018-10-19] MEDS: LOVENOX SUB-Q SCH ×2 (09:44→23:06)
[2018-10-20] MEDS: HumaLOG SUB-Q SCH ×4 (08:56→21:40)
[2018-10-20] MEDS: LOPRESSOR PO SCH ×2 (08:58→21:38)
[2018-10-20] MEDS: HALFPRIN EC PO SCH (08:58)
[2018-10-20] MEDS: CLARITIN PO SCH (08:59)
[2018-10-20] MEDS: NORVASC PO SCH (08:59)
[2018-10-20] MEDS: QUESTRAN PO SCH ×2 (08:59→21:38)
[2018-10-20] MEDS: LOVENOX SUB-Q SCH ×2 (09:00→21:38)
--- NOTE | 2018-10-20 11:43 | Progress Note ---
Subjective Date of service: 10/20/18 Principal diagnosis: Right MCA CVA Interval history: 63-year-old right-hand dominant female was found on the floor with left-sided weakness by her daughter. She presented to [facility] was noted to have NIHSS of [address] showed right MCA CVA. She was outside the window for TPA however was a candidate for thrombectomy and after undergoing this procedure was admitted to the ICU. She had fairly recovery from the thrombectomy but still has left-sided weakness. Further workup with labs showed hemoglobin A1c of 10.3, LDL 173, TSH 2.014. She was noted to have elevated troponins without chest pain which was monitored and managed medically. She underwent an echo which showed 30% ejection fraction. During her stay at [facility] she was incidentally found to have a possible right lower lobe pulmonary artery occlusion and a left renal artery occlusion versus stenosis. Daughter states she was told the pulmonary artery occlusion was revisited and determined not to be an issue however I do not have paperwork to confirm that vascular surgery was consult at for the left renal artery occlusion versus severe stenosis and recommended no intervention but did ask for the patient to follow-up in clinic. She was placed on anti-coagulation level of Lovenox. Due to this she was also taken off of her prior Plavix dose. 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 Per review of records the mass has not been biopsied and a malignancy has not been ruled out however the patient's family again states that they have been told this was not cancerous in the past. Plan was also to follow-up for this mass and vascular clinic. Patient is a Buddhist and does not want any blood products. She also has a follow-up with neurology in 4-5 weeks. Patient is participating in therapy and making reasonable progress. Taking rest breaks as needed. Sleepy this morning. But able to wake up and answer ques tions and participate with exam. Denies pain, palpitations, dyspnea, cough, N/V, weakness, or joint pain. No signs of shoulder hand syndrome. CN exam stable. Start low-dose Lantus and monitor glucose values. Discussed in team conference All records, vitals, labs and medications were reviewed. No other issues per patient, nursing or therapy. Objective - Exam Narrative Exam: MUSCULOSKELETAL SPECIALTY EXAM CONSTITUTIONAL: Well developed, well nourished, appropriately groomed. RIGHT hand dominant. RESPIRATORY: Clear to ascultation bilaterally, no increased work of breathing CARDIOVASCULAR: Regular Rate/ Rhythm, no swelling, edema or tenderness in BUE or BLE except for mild LLE swelling at the ankle. All extremities warm. GI: + bowel sounds, soft, NTTP, nondistended. INTEGUMENTARY: Normal. MUSCULOSKELETAL: BUE and BLE normal without defect, crepitus, subluxation, effusion, arthritic changes or TTP. SA EF WE EE FF FA HF KE ADF EHL APF R 5/5 5/5 5/5 5/5 5/5 5/5 5/5 5/5 5/5 5/5 5/5 L 3/5 4-/5 4-/5 4-/5 4/5 4/5 3/5 4-/5 3- /5 3/5 3/5 ROM is decreased on the left upper and lower extremities (full passive) and within functional limits on the right upper and lower extremities. Tone is decreased on the left upper and lower extremities and normal on the right upper and lower extremities. NEURO: CN II-XII grossly intact except for left facial droop, decreased shoulder shrug on the left, tongue protrudes left Sensation intact in all extremities without extinction. Coordination intact in RUE, dysmetria noted on the LUE. No tremor noted in 4 extremities. Follows 2 step commands POSTURE and GAIT: Sitting posture good. Balance appears reasonable. Leans left, ambulates short distance PSYCH: Sleepy, orientated x3, affect appears euthymic. Insight appears intact. - Constitutional Vitals: Vital Signs - 12hr 10/20/18 10/20/18 10/20/18 04:46 07:30 07:45 Temperature 36.9 C 36.6 C Pulse Rate 80 81 83 Respiratory 18 18 Rate Blood Pressure 117/77 Blood Pressure 134/86 [Right] O2 Sat by Pulse 99 100 Oximetry 10/20/18 10/20/18 08:58 08:59 Temperature Pulse Rate 80 80 Respiratory Rate Blood Pressure 136/80 136/80 Blood Pressure [Right] O2 Sat by Pulse Oximetry - Allied health notes Allied health notes reviewed: nursing, PT, ST, OT FIMS assessment as documented by PT/OT/ST: Grooming Patient cleans teeth/dentures: Yes Patient condon/brushes hair: No Patient washes, rinses and Yes dries face: Patient washes, rinses and Yes dries hands: Patient performs (no make-up/ 3/4 (75%) shaving): Grooming FIM Score 3. Moderate Assistance (Patient = 50% or more) Toileting Toileting Device Grab Bar Toileting FIM Score 1. Total Assistance (Patient less than 25%. 2 or more persons.) Social interaction/Memory/Problem solving Social Interaction FIM Score 7. Complete [place] (Interacts appropriately. Controls temper.) Memory FIM Score 6. Modified [place](Mild difficulty remembering people/routines.) Problem Solving FIM Score 6. Mod. [place] (Mild difficulty or needs more time w/ complex.) Transfers Mode of Locomotion: Wheelchair Bed/Chair/Wheelchair Transfers 3. Moderate Assistance (Patient = 50% or more. FIM Score Some lifting.) Toilet Transfers FIM Score 3. Moderate Assistance (Patient = 50% or more. Some lifting.) Patient transferred to: Shower Shower Transfers FIM Score 3. Moderate Assistance (Patient = 50% or more. Some lifting.) Locomotion- Stairs Device used on Stairs Handrail/s Number of Stairs Ascended/ 2 Descended Patient used handrail/support: Yes Stairs FIM Score 1. Total Assistance (Pt. < 25%, 2 person assist, or <4 stairs.) Locomotion- walk/wheelchair Most Frequent Mode of Wheelchair Locomotion: Ambulation Distance 12 Walking FIM Score 1. Total Assistance (Pt. < 25%, 2 or more person assist, or <50 ft.) Wheelchair Propulsion Distance 150 Wheelchair FIM Score 2. Maximal Assistance (Patient = 25% or more. Minimum of 50 ft.) Eating Eating FIM Score 5. Supervision/Set-Up (Needs help w/ containers, cutting meat, etc.) Dressing-Upper body Patient retrieves clothing No items: Patient applies/removes UE n/a prosthesis or orthosis: Upper Body Dressing FIM Score 3. Moderate Assistance (Patient = 50% or more) Dressing-lower body Patient retrieves clothing No items: Patient applies/removes LE n/a prosthesis or orthosis: Lower Body Dressing FIM Score 2. Maximal Assistance (Patient = 25% or more) - Labs CBC & Chem 7: 10/14/18 07:05 10/17/18 06:37 Labs: Laboratory Results - last 72 hr 10/17/18 10/17/18 10/17/18 11:51 16:46 21:32 POC Glucose 173 H 107 H 107 H 10/18/18 10/18/18 10/18/18 11:29 16:49 21:43 POC Glucose 255 H 144 H 143 H 10/19/18 10/19/18 10/19/18 08:38 12:16 16:03 POC Glucose 143 H 194 H 196 H 10/19/18 10/20/18 22:17 07:45 POC Glucose 226 H 142 H Assessment and Plan I69.354 CVA Non Dom L melisa:Secondary CVA prevention, discussed prognosis and need to control HTN/DM/HLD. Will monitor for shoulder hand syndrome and post stroke depression. Refusing statin, have started Questran. 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 May need custom AFO in future. Monitor I10 Hypertension: continue medications and adjust as needed for normotension E11.9 DM: Poorly controlled, A1c 10.3 at OSH, start low-dose Lantus I50.9 CHF: EF 30% monitor for exacerbation and need to diurese I25.9 CAD: s/p stent, cont ASA. Plavix d/c'd at OSH due to therapeutic lovenox E78.5 Hyperlipidemia: states she does not want to take statin due to muscle aches in past, refused other statins that are less likely to cause problems. Agreed to try Questran, welchol pills were too large. N18.9 CKD: monitor renal function closely. Refused blood draws at OSH K59.00 Constipation: Bowel program started, but she is refusing medications. Monitor. KUB ordered, suppository ordered Z73.6 ADL dysfunction: OT will work on improving ability to perform ADLs (including assistive devices) to increase independence and decrease caregiver burden and improve functional transfers and mobility training. R26.2 Difficulty walking: PT will work on gait training and proper use of assistive devices and advance as appropriate to use of stairs and outside ambulation on uneven surfaces. R26.81 Unsteadiness on feet: PT will work on improving static and dynamic sitting and standing balance as well as proper use of assistive devices to decrease risk of falls. R26.89 Abnormality of gait: PT will work to improve safety and efficiency of gait through neuromotor training and gait training along with instruction on proper use of assistive devices. M62.81 Muscle weakness: PT & OT will work on strengthening exercises to improve functional strength including mixture of closed and open kinetic chain exercise s. R53.81 Debility: PT & OT will work on improving overall functional status to improve participation with ADLs, mobility and social involvement. R53.83 Fatigue: PT & OT will work on improving endurance through aerobic exercises and therapeutic activity while monitoring patients tolerance for activity and vital signs as needed. DVT ppx: on therapeutic lovenox for renal artery stenosis and possible pulmonary artery occlusion. Pain: Continue physical modalities in therapy and pain medications as needed to achieve functional pain control. Sleep: Monitor and address as needed. Previously on melatonin which we do not carry, low-dose trazodone seems to make her too drowsyhave DC'd Bowel: Monitor and address as needed. Appetite: Monitor and address as needed. Discharge planning: Pending therapy progress and care plan meeting. Will continue discussion with therapy team, SW, patient and family. Restrictions/ Precautions: Falls WB status: FWB Functional Hx: ADLs: Independent Cognition: Independent Mobility: No AD Barriers to Discharge: Decreased mobility and ability to perform self care, balance deficits, weakness Estimated Length of Stay: 14-21 days Discharge Destination: Home with family
[2018-10-20] MEDS: LANTUS SUB-Q SCH (21:38)
[2018-10-21] MEDS: HumaLOG SUB-Q SCH ×4 (09:54→22:00)
[2018-10-21] MEDS: LOVENOX SUB-Q SCH ×2 (10:22→21:55)
[2018-10-21] MEDS: HALFPRIN EC PO SCH (10:23)
[2018-10-21] MEDS: QUESTRAN PO SCH ×2 (10:23→21:56)
[2018-10-21] MEDS: NORVASC PO SCH (10:23)
[2018-10-21] MEDS: CLARITIN PO SCH (10:24)
[2018-10-21] MEDS: LOPRESSOR PO SCH ×2 (13:13→21:55)
[2018-10-21] MEDS: LANTUS SUB-Q SCH (22:00)
[2018-10-22 07:58] LABS: BUN/Creatinine Ratio 13; Blood Urea Nitrogen 13 mg/dL (7-17); Calcium 8.8 mg/dL (8.4-10.2); Hemolysis Index 6
[2018-10-22] MEDS: HumaLOG SUB-Q SCH ×3 (08:10→16:50)
--- NOTE | 2018-10-22 10:43 | Progress Note ---
Subjective Date of service: 10/22/18 Principal diagnosis: Right MCA CVA Interval history: 63-year-old right-hand dominant female was found on the floor with left-sided weakness by her daughter. She presented to [facility] was noted to have NIHSS of [address] showed right MCA CVA. She was outside the window for TPA however was a candidate for thrombectomy and after undergoing this procedure was admitted to the ICU. She had fairly recovery from the thrombectomy but still has left-sided weakness. Further workup with labs showed hemoglobin A1c of 10.3, LDL 173, TSH 2.014. She was noted to have elevated troponins without chest pain which was monitored and managed medically. She underwent an echo which showed 30% ejection fraction. 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 Daughter states she was told the pulmonary artery occlusion was revisited and determined not to be an issue however I do not have paperwork to confirm that vascular surgery was consult at for the left renal artery occlusion versus severe stenosis and recommended no intervention but did ask for the patient to follow-up in clinic. She was placed on anti-coagulation level of Lovenox. Due to this she was also taken off of her prior Plavix dose. 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 Per review of records the mass has not been biopsied and a malignancy has not been ruled out however the patient's family again states that they have been told this was not cancerous in the past. Plan was also to follow-up for this mass and vascular clinic. Patient is a [employer]oration and does not want any blood products. She also has a follow-up with neurology in 4-5 weeks. Patient is participating in therapy and making reasonable progress. Taking rest breaks as needed. Denies pain, palpitations, dyspnea, cough, N/V, weakness, or joint pain. No signs of shoulder hand syndrome. CN exam stable. Blood glucose is well controlled on Lantus and sliding scale. We'll continue to monitor and adjust as needed. Patient states she has not had a bowel movement since the last suppository was given. I reminded her that she refused to take any of the oral medications and she has agreed to take milk of magnesia. I also took a mom ent to ask her what her normal regimen was at home and she states every couple of days she would have a bowel movement. We will continue to use milk of magnesia as needed with a suppository if she does not have a bowel movement within 4 days. BMP reviewed looks good. Strength in the left upper extremity appears slightly different today, unsure of reason. No neurologic changes noted otherwise. We'll continue to monitor and ensure that she is making progress. All records, vitals, labs and medications were reviewed. No other issues per patient, nursing or therapy. Objective - Exam Narrative Exam: MUSCULOSKELETAL SPECIALTY EXAM CONSTITUTIONAL: Well developed, well nourished, appropriately groomed. RIGHT hand dominant. RESPIRATORY: Clear to ascultation bilaterally, no increased work of breathing CARDIOVASCULAR: Regular Rate/ Rhythm, no swelling, edema or tenderness in BUE or BLE except for mild LLE swelling at the ankle. All extremities warm. GI: + bowel sounds, soft, NTTP, nondistended. INTEGUMENTARY: Normal. MUSCULOSKELETAL: BUE and BLE normal without defect, crepitus, subluxation, effusion, arthritic changes or TTP. SA EF WE EE FF FA HF KE ADF EHL APF R 5/5 5/5 5/5 5/5 5/5 5/5 5/5 5/5 5/5 5/5 5/5 L 3/5 3/5 3/5 3/5 3/5 3/5 3/5 4-/5 3-/5 3/5 3/5 ROM is decreased on the left upper and lower extremities (full passive) and within functional limits on the right upper and lower extremities. Tone is decreased on the left upper and lower extremities and normal on the right upper and lower extremities. NEURO: CN II-XII grossly intact except for left facial droop, decreased shoulder shrug on the left, tongue protrudes left Sensation intact in all extremities without extinction. Coordination intact in RUE, dysmetria noted on the LUE. No tremor noted in 4 extremities. Follows 2 step commands POSTURE and GAIT: Sitting posture good. Balance appears reasonable. Leans left, ambulates short distance PSYCH: Awake, orientated x3, affect appears euthymic. Insight appears intact. - Constitutional Vitals: Vital Signs - 12hr 10/22/18 10/22/18 05:51 07:43 Temperature 36.4 C 36.3 C L Pulse Rate 78 77 Respiratory 16 18 Rate Blood Pressure 119/84 125/85 O2 Sat by Pulse 96 92 Oximetry - Allied health notes Allied health notes reviewed: nursing, PT, ST, OT FIMS assessment as documented by PT/OT/ST: Grooming Patient cleans teeth/dentures: Yes Patient condon/brushes hair: No Patient washes, rinses and Yes dries face: Patient washes, rinses and Yes dries hands: Patient performs (no make-up/ 3/4 (75%) shaving): Grooming FIM Score 3. Moderate Assistance (Patient = 50% or more) Toileting Toileting Device Grab Bar Toileting FIM Score 1. Total Assistance (Patient less than 25%. 2 o r more persons.) Social interaction/Memory/Problem solving Social Interaction FIM Score 7. Complete Arrey (Interacts appropriately. Controls temper.) Memory FIM Score 5. Supervision (Needs cueing <10%, stressful/ unfamiliar situations.) Problem Solving FIM Score 4. Minimal Assistance (Solves routine problems 75-90%.) Transfers Mode of Locomotion: Wheelchair Bed/Chair/Wheelchair Transfers 3. Moderate Assistance (Patient = 50% or more. FIM Score Some lifting.) Toilet Transfers FIM Score 3. Moderate Assistance (Patient = 50% or more. Some lifting.) Patient transferred to: Shower Shower Transfers FIM Score 3. Moderate Assistance (Patient = 50% or more. Some lifting.) Locomotion- Stairs Device used on Stairs Handrail/s Number of Stairs Ascended/ 2 Descended Patient used handrail/support: Yes Stairs FIM Score 1. Total Assistance (Pt. < 25%, 2 person assist, or <4 stairs.) Locomotion- walk/wheelchair Most Frequent Mode of Wheelchair Locomotion: Ambulation Distance 50 Walking FIM Score 1. Total Assistance (Pt. < 25%, 2 or more person assist, or <50 ft.) Wheelchair Propulsion Distance 340 Wheelchair FIM Score 5. Supervision (Minimum 150 ft. supv./cues or 50 ft. independently.) Eating Eating FIM Score 5. Supervision/Set-Up (Needs help w/ containers, cutting meat, etc.) Dressing-Upper body Patient retrieves clothing No items: Patient applies/removes UE n/a prosthesis or orthosis: Upper Body Dressing FIM Score 3. Moderate Assistance (Patient = 50% or more) Dressing-lower body Patient retrieves clothing No items: Patient applies/removes LE n/a prosthesis or orthosis: Lower Body Dressing FIM Score 2. Maximal Assistance (Patient = 25% or more) - Labs CBC & Chem 7: 10/14/18 07:05 10/22/18 07:03 Labs: Laboratory Results - last 72 hr 10/19/18 10/19/18 10/19/18 12:16 16:03 22:17 Sodium Potassium Chloride Carbon Dioxide Anion Gap BUN Creatinine Estimated GFR BUN/Creatinine Ratio Glucose POC Glucose 194 H 196 H 226 H Calcium 10/20/18 10/20/18 10/20/18 07:45 11:57 16:38 Sodium Potassium Chloride Carbon Dioxide Anion Gap BUN Creatinine Estimated GFR BUN/Creatinine Ratio Glucose POC Glucose 142 H 213 H 210 H Calcium 10/20/18 10/21/18 10/21/18 20:52 09:31 13:02 Sodium Potassium Chloride Carbon Dioxide Anion Gap BUN Creatinine Estimated GFR BUN/Creatinine Ratio Glucose POC Glucose 164 H 131 H 206 H Calcium 10/21/18 10/21/18 10/22/18 17:56 22:13 07:03 Sodium 137 Potassium 4.1 Chloride 104.3 Carbon Dioxide 22 Anion Gap 15 BUN 13 Creatinine 1.0 Estimated GFR > 60 BUN/Creatinine Ratio 13 Glucose 162 H POC Glucose 144 H 148 H Calcium 8.8 10/22/18 07:48 Sodium Potassium Chloride Carbon Dioxide Anion Gap BUN Creatinine Estimated GFR BUN/Creatinine Ratio Glucose POC Glucose 158 H Calcium Assessment and Plan I69.354 CVA Non Dom L melisa:Secondary CVA prevention, discussed prognosis and need to control HTN/DM/HLD. Will monitor for shoulder hand syndrome and post stroke depression. Refusing statin, have started Questran. I69.391 Dysphagia: [employer] noted oral phase dysphagia of but no evidence of aspiration, recommended small bites and sitting upright M21.372 Left foot drop: AFO, continue therapy. May need custom AFO in future. Monitor I10 Hypertension: continue medications and adjust as needed for normotension E11.9 DM: Poorly controlled, A1c 10.3 at OSH, start low-dose Lantus I50.9 CHF: EF 30% monitor for exacerbation and need to diurese I25.9 CAD: s/p stent, cont ASA. Plavix d/c'd at OSH due to therapeutic lovenox E78.5 Hyperlipidemia: states she does not want to take statin due to muscle aches in past, refused other statins that are less likely to cause problems. Agreed to try Questran, welchol pills were too large. N18.9 CKD: monitor renal function closely. Refused blood draws at OSH K59.00 Constipation: Bowel program started, but she is refusing medications. Monitor. KUB ordered, suppository ordered Z73.6 ADL dysfunction: OT will work on improving ability to perform ADLs (including assistive devices) to increase independence and decrease caregiver burden and improve functional transfers and mobility training. R26.2 Difficulty walking: PT will work on gait training and proper use of assistive devices and advance as appropriate to use of stairs and outside ambulation on uneven surfaces. R26.81 Unsteadiness on feet: PT will work on improving static and dynamic sitting and standing balance as well as proper use of assistive devices to decrease risk of falls. R26.89 Abnormality of gait: PT will work to improve safety and efficiency of gait through neuromotor training and gait training along with instruction on proper use of assistive devices. M62.81 Muscle weakness: PT & OT will work on strengthening exercises to improve functional strength including mixture of closed and open kinetic chain exercises. R53.81 Debility: PT & OT will work on improving overall functional status to improve participation with ADLs, mobility and social involvement. R53.83 Fatigue: PT & OT will work on improving endurance through aerobic exercises and therapeutic activity while monitoring patients tolerance for activity and vital signs as needed. DVT ppx: on therapeutic lovenox for renal artery stenosis and possible pulmonary artery occlusion. Pain: Continue physical modalities in therapy and pain medications as needed to achieve functional pain control. Sleep: Monitor and address as needed. Previously on melatonin which we do not carry, low-dose trazodone seems to make her too drowsyhave DC'd Bowel: Milk of magnesia and suppositories. Monitor and address as needed. Appetite: Monitor and address as needed. Discharge planning: Pending therapy progress and care plan meeting. Will c ontinue discussion with therapy team, SW, patient and family. Restrictions/ Precautions: Falls WB status: FWB Functional Hx: ADLs: Independent Cognition: Independent Mobility: No AD Barriers to Discharge: Decreased mobility and ability to perform self care, balance deficits, weakness Estimated Length of Stay: 14-21 days Discharge Destination: Home with family
[2018-10-22] MEDS: CLARITIN PO SCH (13:48)
[2018-10-22] MEDS: HALFPRIN EC PO SCH (13:48)
[2018-10-22] MEDS: NORVASC PO SCH (13:48)
[2018-10-22] MEDS: LOVENOX SUB-Q SCH ×2 (13:49→21:57)
[2018-10-22] MEDS: LOPRESSOR PO SCH (13:49)
[2018-10-22] MEDS: QUESTRAN PO SCH ×2 (13:56→21:56)
[2018-10-22] MEDS: LANTUS SUB-Q SCH (21:56)
[2018-10-23] MEDS: HumaLOG SUB-Q SCH ×5 (00:44→22:11)
[2018-10-23] MEDS: LOPRESSOR PO SCH ×3 (00:53→22:17)
--- NOTE | 2018-10-23 08:40 | Event Note ---
Date: 10/22/18 Notified 16:17 that patient slid out of wheelchair. No visible signs of injury per nursing. No report of head injury. Gave orders to perform serial neurochecks and to notify me if there were any changes in neuro exam so we could get emergent CT head (patient is on therapeutic dose of lovenox). Also asked to be notified if condition changed with regard to pain/function. Will continue to monitor.
[2018-10-23] MEDS: CLARITIN PO SCH (09:02)
[2018-10-23] MEDS: LOVENOX SUB-Q SCH ×2 (10:00→22:17)
--- NOTE | 2018-10-23 12:52 | Cat Scan Report ---
CT ORBITS WITHOUT CONTRAST: HISTORY: Left eye swelling and. TECHNIQUE: Helical CT with sagittal and coronal reformatted images. FINDINGS: There is mild left periorbital swelling. The visualized osseous structures are intact without fracture or malalignment. The paranasal sinuses are clear. The nasal septum is midline. The orbital rims are intact. The globes are symmetric with homogeneous density. The retro-orbital fat demonstrates no inflammatory stranding. The extraocular muscles are symmetric. The extraocular muscles and optic nerves demonstrate normal course. IMPRESSION: Left periorbital soft tissue swelling. No acute facial fracture is appreciated.
--- NOTE | 2018-10-23 12:54 | Cat Scan Report ---
CT HEAD WITHOUT CONTRAST: HISTORY: Fall with swelling, on therapeutic dose of Lovenox. TECHNIQUE: Sequential 2.5mm CT images. COMPARISON: none. FINDINGS: Cerebral Parenchyma: A 5.3 x 2.1 cm area of diminished attenuation is identified throughout the right basal ganglia. This has the appearance of a subacute ischemic infarct. The remaining brain parenchyma is within normal limits. Cerebellum: Within normal limits. Brainstem: Within normal limits. Ventricles: Normal. Sella: Normal. Extra-axial spaces: Normal. Basal Cisterns: Normal. Intracranial Hemorrhage: None. Midline Shift: None. Calvarium: Normal. Sinuses: Normal. Mastoid Air Cells: Normal. Visualized Orbits: Normal. IMPRESSION: 5.3 x 2.1 cm area of diminished attenuation in the right basal ganglia is suggestive of a subacute ischemic infarct. Please correlate with the patient's clinical presentation and consider further evaluation with MRI brain without contrast.
--- NOTE | 2018-10-23 13:45 | Progress Note ---
Subjective Date of service: 10/23/18 Principal diagnosis: Right MCA CVA Interval history: 63-year-old right-hand dominant female was found on the floor with left-sided weakness by her daughter. She presented to [facility] was noted to have NIHSS of [address] showed right MCA CVA. She was outside the window for TPA however was a candidate for thrombectomy and after undergoing this procedure was admitted to the ICU. She had fairly recovery from the thrombectomy but still has left-sided weakness. Further workup with labs showed hemoglobin A1c of 10.3, LDL 173, TSH 2.014. She was noted to have elevated troponins without chest pain which was monitored and managed medically. She underwent an echo which showed 30% ejection fraction. During her stay at [facility] she was incidentally found to have a possible right lower lobe pulmonary artery occlusion and a left renal artery occlusion versus stenosis. Daughter states she was told the pulmonary artery occlusion was revisited and determined not to be an issue however I do not have paperwork to confirm that vascular surgery was consult at for the left renal artery occlusion versus severe stenosis and recommended no intervention but did ask for the patient to follow-up in clinic. She was placed on anti-coagulation level of Lovenox. Due to this she was also taken off of her prior Plavix dose. 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 Per review of records the mass has not been biopsied and a malignancy has not been ruled out however the patient's family again states that they have been told this was not cancerous in the past. Plan was also to follow-up for this mass and vascular clinic. Patient is a [employer] and does not want any blood products. She also has a follow-up with neurology in 4-5 weeks. Patient is participating in therapy and making reasonable progress. Taking rest breaks as needed. Denies SALCIDO, visual disturbance, confusion, pain, palpitat ions, dyspnea, cough, N/V, weakness, or joint pain. No signs of shoulder hand syndrome. CN exam stable. Blood glucose is well controlled. Continue to monitor and adjust as needed. CT Head and Orbit ordered STAT after I was notified of swelling. Patient is stable. Discussed results with daughter, patient and Assistant Warehouse Manager. Nursing notified of need to closely monitor over night. Called to check on her this evening. Lovenox restarted. Discussed not getting up without assistance. All records, vitals, labs and medications were reviewed. No other issues per patient, nursing or therapy. Objective - Exam Narrative Exam: MUSCULOSKELETAL SPECIALTY EXAM CONSTITUTIONAL: Well developed, well nourished, appropriately groomed. RIGHT hand dominant. RESPIRATORY: Clear to ascultation bilaterally, no increased work of breathing CARDIOVASCULAR: Regular Rate/ Rhythm, no swelling, edema or tenderness in BUE or BLE except for mild LLE swelling at the ankle. All extremities warm. GI: + bowel sounds, soft, NTTP, nondistended. INTEGUMENTARY: Normal except for small hematoma over left eye MUSCULOSKELETAL: BUE and BLE normal without defect, crepitus, subluxation, effusion, arthritic changes or TTP. SA EF WE EE FF FA HF KE ADF EHL APF R 5/5 5/5 5/5 5/5 5/5 5/5 5/5 5/5 5/5 5/5 5/5 L 3/5 3/5 3/5 3/5 3/5 3/5 3/5 4-/5 3-/5 3/5 3/5 ROM is decreased on the left upper and lower extremities (full passive) and within functional limits on the right upper and lower extremities. Tone is decreased on the left upper and lower extremities and normal on the right upper and lower extremities. NEURO: CN II-XII grossly intact except for left facial droop, decreased shoulder shrug on the left, tongue protrudes left Sensation intact in all extremities without extinction. Coordination intact in RUE, dysmetria noted on the LUE. No tremor noted in 4 extremities. Follows 2 step commands POSTURE and GAIT: Sitting posture good. Balance appears reasonable. Leans left, ambulates short distance PSYCH: Awake, orientated x3, affect appears euthymic. Insight appears intact. - Constitutional Vitals: Vital Signs - 12hr 10/23/18 10/23/18 10/23/18 06:16 07:12 08:49 Temperature 36.3 C L 36.7 C 36.6 C Pulse Rate 72 76 Respiratory 18 18 Rate Blood Pressure 118/81 121/81 O2 Sat by Pulse 97 100 Oximetry 10/23/18 09:02 Temperature Pulse Rate 79 Respiratory Rate Blood Pressure 121/81 O2 Sat by Pulse Oximetry - Allied health notes Allied health notes reviewed: nursing, PT, ST, OT FIMS assessment as documented by PT/OT/ST: Grooming Patient cleans teeth/dentures: Yes Patient condon/brushes hair: No Patient washes, rinses and Yes dries face: Patient washes, rinses and Yes dries hands: Patient performs (no make-up/ 3/4 (75%) shaving): Grooming FIM Score 3. Moderate Assistance (Patient = 50% or more) Toileting Toileting Device Commode over Toilet,Grab Bar Toileting FIM Score 2. Maximal Assistance (Patient = 25% or more) Social interaction/Memory/Problem solving Social Interaction FIM Score 7. Complete [place] (Interacts appropriately. Controls temper.) Memory FIM Score 5. Supervision (Needs cueing <10%, stressful/ unfamiliar situations.) Problem Solving FIM Score 4. Minimal Assistance (Solves routine problems 75-90%.) Transfers Mode of Locomotion: Wheelchair Bed/Chair/Wheelchair Transfers 4. Minimal Assistance (Patient = 75% or more. FIM Score Needs touching.) Toilet Transfers FIM Score 3. Moderate Assistance (Patient = 50% or more. Some lifting.) Patient transferred to: Shower Shower Transfers FIM Score 3. Moderate Assistance (Patient = 50% or more. Some lifting.) Locomotion- Stairs Device used on Stairs Handrail/s Number of Stairs Ascended/ 2 Descended Patient used handrail/support: Yes Stairs FIM Score 1. Total Assistance (Pt. < 25%, 2 person assist, or <4 stairs.) Locomotion- walk/wheelchair Most Frequent Mode of Wheelchair Locomotion: Ambulation Distance 88 Walking FIM Score 2. Maximal Assistance (Patient = 25% or more. Minimum of 50 ft.) Wheelchair Propulsion Distance 340 Wheelchair FIM Score 5. Supervision (Minimum 150 ft. supv./cues or 50 ft. independently.) Eating Eating FIM Score 5. Supervision/Set-Up (Needs help w/ containers, cutting meat, etc.) Dressing-Upper body Patient retrieves clothing No items: Patient applies/removes UE n/a prosthesis or orthosis: Upper Body Dressing FIM Score 3. Moderate Assistance (Patient = 50% or more) Dressing-lower body Lower Body Dressing Device Maintenance Chief/Stick Patient retrieves clothing No items: Patient applies/removes LE No prosthesis or orthosis: Lower Body Dressing FIM Score 2. Maximal Assistance (Patient = 25% or more) - Labs CBC & Chem 7: 10/14/18 07:05 10/22/18 07:03 Labs: Laboratory Results - last 72 hr 10/20/18 10/20/18 10/21/18 16:38 20:52 09:31 Sodium Potassium Chloride Carbon Dioxide Anion Gap BUN Creatinine Estimated GFR BUN/Creatinine Ratio Glucose POC Glucose 210 H 164 H 131 H Calcium 10/21/18 10/21/18 10/21/18 13:02 17:56 22:13 Sodium Potassium Chloride Carbon Dioxide Anion Gap BUN Creatinine Estimated GFR BUN/Creatinine Ratio Glucose POC Glucose 206 H 144 H 148 H Calcium 10/22/18 10/22/18 10/22/18 07:03 07:48 11:45 Sodium 137 Potassium 4.1 Chloride 104.3 Carbon Dioxide 22 Anion Gap 15 BUN 13 Creatinine 1.0 Estimated GFR > 60 BUN/Creatinine Ratio 13 Glucose 162 H POC Glucose 158 H 183 H Calcium 8.8 10/22/18 10/22/18 10/23/18 16:14 21:27 09:03 Sodium Potassium Chloride Carbon Dioxide Anion Gap BUN Creatinine Estimated GFR BUN/Creatinine Ratio Glucose POC Glucose 224 H 143 H 146 H Calcium - Imaging and cardiology CT Scan - head: report reviewed, image reviewed Assessment and Plan I69.354 CVA Non Dom L melisa:Secondary CVA prevention, discussed prognosis and need to control HTN/DM/HLD. Will monitor for shoulder hand syndrome and post stroke depression. Refusing statin, have started Questran. I69.391 Dysphagia: SPINNER FRAME noted oral phase dysphagia of but no evidence of aspiration, recommended small bites and sitting upright M21.372 Left foot drop: AFO, continue therapy. May need custom AFO in future. Monitor I10 Hypertension: continue medications and adjust as needed for normotension E11.9 DM: Poorly controlled, A1c 10.3 at OSH, start low-dose Lantus I50.9 CHF: EF 30% monitor for exacerbation and need to diurese I25.9 CAD: s/p stent, cont ASA. Plavix d/c'd at OSH due to therapeutic lovenox E78.5 Hyperlipidemia: states she does not want to take statin due to muscle aches in past, refused other statins that are less likely to cause problems. Agreed to try Questran, welchol pills were too large. N18.9 CKD: monitor renal function closely. Refused blood draws at OSH K59.00 Constipation: Bowel program started, but she is refusing medications. Monitor. KUB ordered, suppository ordered Z73.6 ADL dysfunction: OT will work on improving ability to perform ADLs (including assistive devices) to increase independence and decrease caregiver burden and improve functional transfers and mobility training. R26.2 Difficulty walking: PT will work on gait training and proper use of assistive devices and advance as appropriate to use of stairs and outside ambulation on uneven surfaces. R26.81 Unsteadiness on feet: PT will work on improving static and dynamic sitting and standing balance as well as proper use of assistive devices to decrease risk of falls. R26.89 Abnormality of gait: PT will work to improve safety and efficiency of gait through neuromotor training and gait training along with instruction on proper use of assistive devices. M62.81 Muscle weakness: PT & OT will work on strengthening exercises to improve functional strength including mixture of closed and open kinetic chain exercis es. R53.81 Debility: PT & OT will work on improving overall functional status to improve participation with ADLs, mobility and social involvement. R53.83 Fatigue: PT & OT will work on improving endurance through aerobic exercises and therapeutic activity while monitoring patients tolerance for acti vity and vital signs as needed. DVT ppx: on therapeutic lovenox for renal artery stenosis and possible pulmonary artery occlusion. Pain: Continue physical modalities in therapy and pain medications as needed to achieve functional pain control. Sleep: Monitor and address as needed. Previously on melatonin which we do not carry, low-dose trazodone seems to make her too drowsyhave DC'd Bowel: Milk of magnesia and suppositories. Monitor and address as needed. Appetite: Monitor and address as needed. Discharge planning: Pending therapy progress and care plan meeting. Will continue discussion with therapy team, SW, patient and family. Restrictions/ Precautions: Falls WB status: FWB Functional Hx: ADLs: Independent Cognition: Independent Mobility: No AD Barriers to Discharge: Decreased mobility and ability to perform self care, balance deficits, weakness Estimated Length of Stay: 14-21 days Discharge Destination: Home with family
[2018-10-23] MEDS: NORVASC PO SCH (16:40)
[2018-10-23] MEDS: HALFPRIN EC PO SCH (17:13)
[2018-10-23] MEDS: QUESTRAN PO SCH ×2 (17:20→22:28)
[2018-10-23] MEDS: LANTUS SUB-Q SCH (22:35)
[2018-10-24] MEDS: HumaLOG SUB-Q SCH ×4 (07:30→21:40)
[2018-10-24] MEDS: NORVASC PO SCH (09:20)
[2018-10-24] MEDS: HALFPRIN EC PO SCH (09:21)
[2018-10-24] MEDS: LOPRESSOR PO SCH (09:21)
[2018-10-24] MEDS: CLARITIN PO SCH (09:21)
[2018-10-24] MEDS: LOVENOX SUB-Q SCH ×2 (09:21→21:39)
[2018-10-24] MEDS: QUESTRAN PO SCH ×3 (09:22→21:46)
[2018-10-24] MEDS: MILK OF MAGNESIA PO PRN (18:39)
[2018-10-24] MEDS: LANTUS SUB-Q SCH (21:40)
[2018-10-25] MEDS: HumaLOG SUB-Q SCH ×4 (07:30→22:00)
[2018-10-25] MEDS: NORVASC PO SCH (08:50)
[2018-10-25] MEDS: HALFPRIN EC PO SCH (08:50)
[2018-10-25] MEDS: CLARITIN PO SCH (08:50)
[2018-10-25] MEDS: LOPRESSOR PO SCH ×3 (08:50→21:39)
[2018-10-25] MEDS: QUESTRAN PO SCH ×2 (09:29→22:02)
[2018-10-25] MEDS: LOVENOX SUB-Q SCH ×2 (09:29→21:40)
[2018-10-25] MEDS: MILK OF MAGNESIA PO PRN (13:39)
[2018-10-25] MEDS: LANTUS SUB-Q SCH (21:00)
[2018-10-26 07:22] LABS: Hematocrit 35.4 % (30.3-42.9); Hemoglobin 11.9 gm/dl (10.1-14.3); Mean Corpuscular HGB Conc 34 % (30-34); Mean Corpuscular Volume 87 fl (79-97); Platelet Count 181 K/mm3 (140-440); Red Blood Count 4.06 M/mm3 (3.65-5.03); Red Cell Distribution Width 15.9 % (13.2-15.2)
[2018-10-26] MEDS: HumaLOG SUB-Q SCH ×3 (08:00→17:12)
[2018-10-26] MEDS: HALFPRIN EC PO SCH (12:25)
[2018-10-26] MEDS: LOPRESSOR PO SCH ×2 (12:25→21:44)
[2018-10-26] MEDS: LOVENOX SUB-Q SCH ×2 (12:25→21:44)
[2018-10-26] MEDS: CLARITIN PO SCH (14:11)
[2018-10-26] MEDS: QUESTRAN PO SCH ×2 (14:12→21:45)
[2018-10-26] MEDS: NORVASC PO SCH (21:36)
[2018-10-26] MEDS: LANTUS SUB-Q SCH (21:44)
[2018-10-27] MEDS: HumaLOG SUB-Q SCH ×5 (02:49→22:04)
[2018-10-27] MEDS: CLARITIN PO SCH (07:27)
[2018-10-27] MEDS: HALFPRIN EC PO SCH (07:27)
[2018-10-27] MEDS: NORVASC PO SCH (07:27)
[2018-10-27] MEDS: QUESTRAN PO SCH ×2 (07:28→21:56)
[2018-10-27] MEDS: LOVENOX SUB-Q SCH ×3 (07:28→21:55)
[2018-10-27] MEDS: LOPRESSOR PO SCH ×2 (07:28→21:56)
--- NOTE | 2018-10-27 10:13 | Progress Note ---
Subjective Date of service: 10/27/18 Principal diagnosis: Right MCA CVA Interval history: 63-year-old right-hand dominant female was found on the floor with left-sided weakness by her daughter. She presented to [facility] was noted to have NIHSS of [address] showed right MCA CVA. She was outside the window for TPA however was a candidate for thrombectomy and after undergoing this procedure was admitted to the ICU. She had fairly recovery from the thrombectomy but still has left-sided weakness. Further workup with labs showed hemoglobin A1c of 10.3, LDL 173, TSH 2.014. She was noted to have elevated troponins without chest pain which was monitored and managed medically. She underwent an echo which showed 30% ejection fraction. During her stay at [facility] she was incidentally found to have a possible right lower lobe pulmonary artery occlusion and a left renal artery occlusion versus stenosis. Daughter states she was told the pulmonary artery occlusion was revisited and determined not to be an issue however I do not have paperwork to confirm that vascular surgery was consult at for the left renal artery occlusion versus severe stenosis and recommended no intervention but did ask for the patient to follow-up in clinic. She was placed on anti-coagulation level of Lovenox. Due to this she was also taken off of her prior Plavix dose. 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 Per review of records the mass has not been biopsied and a malignancy has not been ruled out however the patient's family again states that they have been told this was not cancerous in the past. Plan was also to follow-up for this mass and vascular clinic. Patient is a Christian and does not want any blood products. She also has a follow-up with neurology in 4-5 weeks. Patient is participating in therapy and making reasonable progress. Taking rest breaks as needed. This AM daughter states patient started having left eye v isual deficit late yesterday. Patient states she has had some visual field deficits since the stroke onset and they are no worse since the fall. Difficult to assess deficits, will see if we can consult ophthalmology. Would like to access neuro-optometry but I have had a difficult time gaining access to them in [place]. Denies SALCIDO, confusion, pain, palpitations, dyspnea, cough, N/V, or joint pain. No signs of shoulder hand syndrome. CN exam stable. Blood glucose is controlled. Continue to monitor and adjust as needed. Discussed not getting up without assistance. Called daughter with details. Reviewed outside records again (250pgs) due to concern of therapeutic lovenox dose. Based on review the renal artery is either occlusion or stenosis, possibly thrombus. Vascular was consulted but opted for conservative management. Pulmonary artery was similar. Due to these factors she was started on therapeutic lovenox for treatment of DVT. There is also an IVC mass that was thought to be malignant but daughter stated this was reviewed by oncology previously and not malignant in nature. Will see if we can switch to OAC such as eliquis. Discussed in team conference. Making progress with transfers and standing. Turning and walking are problematic. Use of LUE slightly improved. All records, vitals, labs and medications were reviewed. No other issues per patient, nursing or therapy. Objective - Exam Narrative Exam: MUSCULOSKELETAL SPECIALTY EXAM CONSTITUTIONAL: Well developed, well nourished, appropriately groomed. RIGHT hand dominant. Left Eye: mild subconjunctival hemorrhage on left lateral aspect RESPIRATORY: Clear to ascultation bilaterally, no increased work of breathing CARDIOVASCULAR: Regular Rate/ Rhythm, no swelling, edema or tenderness in BUE or BLE except for mild LLE swelling at the ankle. All extremities warm. GI: + bowel sounds, soft, NTTP, nondistended. INTEGUMENTARY: Normal except for small hematoma over left eye MUSCULOSKELETAL: BUE and BLE normal without defect, crepitus, subluxation, effusion, arthritic changes or TTP. SA EF WE EE FF FA HF KE ADF EHL APF R 5/5 5/5 5/5 5/5 5/5 5/5 5/5 5/5 5/5 5/5 5/5 L 3/5 3/5 3/5 3/5 3/5 3/5 3/5 4-/5 3-/5 3/5 3/5 ROM is decreased on the left upper and lower extremities (full passive) and within functional limits on the right upper and lower extremities. Tone is decreased on the left upper and lower extremities and normal on the right upper and lower extremities. NEURO: CN II-XII grossly intact except for left facial droop, decreased shoulder shrug on the left, tongue protrudes left. Degree of left visual field cut. Sensation intact in all extremities without extinction. Coordination intact in RUE, dysmetria noted on the LUE. No tremor noted in 4 extremities. Follows 2 step commands POSTURE and GAIT: Sitting posture good. Balance appears reasonable. Leans left, ambulates short distance PSYCH: Awake, orientated x3, affect appears euthymic. Insight appears intact. - Constitutional Vitals: Vital Signs - 12hr 10/27/18 10/27/18 10/27/18 01:24 04:10 07:19 Temperature 36.7 C 36.6 C Pulse Rate 85 107 H 80 Respiratory 17 18 Rate Blood Pressure 125/80 134/85 O2 Sat by Pulse 95 98 94 Oximetry - Allied health notes Allied health notes reviewed: nursing, PT, ST, OT FIMS assessment as documented by PT/OT/ST: Grooming Patient cleans teeth/dentures: Yes Patient condon/brushes hair: No Patient washes, rinses and Yes dries face: Patient washes, rinses and Yes dries hands: Patient performs (no make-up/ 3/4 (75%) shaving): Grooming FIM Score 3. Moderate Assistance (Patient = 50% or more) Toileting Toileting Device Commode over Toilet,Grab Bar Toileting FIM Score 2. Maximal Assistance (Patient = 25% or more) Social interaction/Memory/Problem solving Social Interaction FIM Score 7. Complete [place] (Interacts appropriately. Controls temper.) Memory FIM Score 7. Complete [place] (Remembers people and routines.) Problem Solving FIM Score 6. Mod. [place] (Mild difficulty or needs more time w/ complex.) Transfers Mode of Locomotion: Wheelchair Bed/Chair/Wheelchair Transfers 4. Minimal Assistance (Patient = 75% or more. FIM Score Needs touching.) Toilet Transfers FIM Score 3. Moderate Assistance (Patient = 50% or more. Some lifting.) Patient transferred to: Shower Shower Transfers FIM Score 3. Moderate Assistance (Patient = 50% or more. Some lifting.) Locomotion- Stairs Device used on Stairs Handrail/s Number of Stairs Ascended/ 2 Descended Patient used handrail/support: Yes Stairs FIM Score 1. Total Assistance (Pt. < 25%, 2 person assist, or <4 stairs.) Locomotion- walk/wheelchair Most Frequent Mode of Wheelchair Locomotion: Ambulation Distance 90 Walking FIM Score 2. Maximal Assistance (Patient = 25% or more. Minimum of 50 ft.) Wheelchair Propulsion Distance 340 Wheelchair FIM Score 5. Supervision (Minimum 150 ft. supv./cues or 50 ft. independently.) Eating Eating FIM Score 5. Supervision/Set-Up (Needs help w/ contain ers, cutting meat, etc.) Dressing-Upper body Patient retrieves clothing No items: Patient applies/removes UE n/a prosthesis or orthosis: Upper Body Dressing FIM Score 3. Moderate Assistance (Patient = 50% or more) Dressing-lower body Lower Body Dressing Device Meteorology Instructor/Stick Patient retrieves clothing No items: Patient applies/removes LE No prosthesis or orthosis: Lower Body Dressing FIM Score 2. Maximal Assistance (Patient = 25% or more) - Labs CBC & Chem 7: 10/26/18 06:52 10/22/18 07:03 Labs: Laboratory Results - last 72 hr 10/24/18 10/24/18 10/24/18 11:50 16:55 21:33 WBC RBC Hgb Hct MCV MCH MCHC RDW Plt Count POC Glucose 111 H 193 H 144 H 10/25/18 10/25/18 10/25/18 05:43 07:43 11:40 WBC RBC Hgb Hct MCV MCH MCHC RDW Plt Count POC Glucose 94 119 H 160 H 10/25/18 10/25/18 10/26/18 16:19 21:53 06:52 WBC 6.7 RBC 4.06 Hgb 11.9 Hct 35.4 MCV 87 MCH 29 MCHC 34 RDW 15.9 H Plt Count 181 POC Glucose 203 H 111 H 10/26/18 10/26/18 10/26/18 07:36 11:41 16:07 WBC RBC Hgb Hct MCV MCH MCHC RDW Plt Count POC Glucose 101 168 H 242 H 10/26/18 10/27/18 22:27 08:00 WBC RBC Hgb Hct MCV MCH MCHC RDW Plt Count POC Glucose 236 H 154 H Assessment and Plan I69.354 CVA Non Dom L melisa:Secondary CVA prevention, discussed prognosis and need to control HTN/DM/HLD. Will monitor for shoulder hand syndrome and post stroke depression. Refusing statin, have started Questran. I69.391 Dysphagia: INTEGRATION ANALYST noted oral phase dysphagia of but no evidence of aspiration, recommended small bites and sitting upright M21.372 Left foot drop: AFO, continue therapy. May need custom AFO in future. Monitor I10 Hypertension: continue medications and adjust as needed for normotension E11.9 DM: Poorly controlled, A1c 10.3 at OSH, low-dose Lantus I50.9 CHF: EF 30% monitor for exacerbation and need to diurese I25.9 CAD: s/p stent, cont ASA. Plavix d/c'd at OSH due to therapeutic lovenox E78.5 Hyperlipidemia: states she does not want to take statin due to muscle aches in past, refused other statins that are less likely to cause problems. Agreed to try Questran, welchol pills were too large. N18.9 CKD: monitor renal function closely. Refused blood draws at OSH K59.00 Constipation: Bowel program started, but she is refusing medications. Monitor. KUB ordered, suppository ordered Z73.6 ADL dysfunction: OT will work on improving ability to perform ADLs (including assistive devices) to increase independence and decrease caregiver burden and improve functional transfers and mobility training. R26.2 Difficulty walking: PT will work on gait training and proper use of assistive devices and advance as appropriate to use of stairs and outside ambulation on uneven surfaces. R26.81 Unsteadiness on feet: PT will work on improving static and dynamic sitting and standing balance as well as proper use of assistive devices to decrease risk of falls. R26.89 Abnormality of gait: PT will work to improve safety and efficiency of gait through neuromotor training and gait training along with instruction on proper use of assistive devices. M62.81 Muscle weakness: PT & OT will work on strengthening exercises to improve functional strength including mixture of closed and open kinetic chain exercises. R53.81 Debility: PT & OT will work on improving overall functional status to improve participation with ADLs, mobility and social involvement. R53.83 Fatigue: PT & OT will work on improving endurance through aerobic exercises and therapeutic activity while monitoring patients tolerance for activity and vital signs as needed. DVT ppx: on therapeutic lovenox for renal artery stenosis and possible pulmonary artery occlusion - review of OSH records favored thrombus but not definitive. Pain: Continue physical modalities in therapy and pain medications as needed to achieve functional pain control. Sleep: Monitor and address as needed. Previously on melatonin which we do not carry, low-dose trazodone seems to make her too drowsyhave DC'd Bowel: Milk of magnesia and suppositories. Monitor and address as needed. Appetite: Monitor and address as needed. Discharge planning: Pending therapy progress and care plan meeting. Will continu e discussion with therapy team, SW, patient and family. Restrictions/ Precautions: Falls WB status: FWB Functional Hx: ADLs: Independent Cognition: Independent Mobility: No AD Barriers to Discharge: Decreased mobility and ability to perform self care, balance deficits, weakness Estimated Length of Stay: 14-21 days Discharge Destination: Home with family
[2018-10-27] MEDS: LANTUS SUB-Q SCH (22:04)
[2018-10-28] MEDS: HumaLOG SUB-Q SCH ×4 (07:45→22:36)
[2018-10-28] MEDS: CLARITIN PO SCH (08:42)
[2018-10-28] MEDS: LOVENOX SUB-Q SCH ×3 (08:42→22:35)
[2018-10-28] MEDS: QUESTRAN PO SCH ×2 (08:42→22:36)
[2018-10-28] MEDS: NORVASC PO SCH (08:42)
[2018-10-28] MEDS: LOPRESSOR PO SCH ×2 (08:42→22:35)
[2018-10-28] MEDS: HALFPRIN EC PO SCH (08:42)
[2018-10-28] MEDS: LANTUS SUB-Q SCH (22:35)
[2018-10-29] MEDS: HumaLOG SUB-Q SCH ×4 (07:30→23:33)
[2018-10-29] MEDS: HALFPRIN EC PO SCH (09:45)
[2018-10-29] MEDS: CLARITIN PO SCH (09:45)
[2018-10-29] MEDS: QUESTRAN PO SCH ×2 (09:45→22:10)
[2018-10-29] MEDS: LOVENOX SUB-Q SCH ×2 (09:46→22:09)
--- NOTE | 2018-10-29 11:01 | Progress Note ---
Subjective Date of service: 10/29/18 Principal diagnosis: Right MCA CVA Interval history: 63-year-old right-hand dominant female was found on the floor with left-sided weakness by her daughter. She presented to [facility] was noted to have NIHSS of [address] showed right MCA CVA. She was outside the window for TPA however was a candidate for thrombectomy and after undergoing this procedure was admitted to the ICU. She had fairly recovery from the thrombectomy but still has left-sided weakness. Further workup with labs showed hemoglobin A1c of 10.3, LDL 173, TSH 2.014. She was noted to have elevated troponins without chest pain which was monitored and managed medically. She underwent an echo which showed 30% ejection fraction. 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 Daughter states she was told the pulmonary artery occlusion was revisited and determined not to be an issue however I do not have paperwork to confirm that vascular surgery was consult at for the left renal artery occlusion versus severe stenosis and recommended no intervention but did ask for the patient to follow-up in clinic. She was placed on anti-coagulation level of Lovenox. Due to this she was also taken off of her prior Plavix dose. 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 Per review of records the mass has not been biopsied and a malignancy has not been ruled out however the patient's family again states that they have been told this was not cancerous in the past. Plan was also to follow-up for this mass and vascular clinic. Patient is a Christianity and does not want any blood products. She also has a follow-up with neurology in 4-5 weeks. Patient is participating in therapy and making reasonable progress, LUE has intermittent improvement. Taking rest breaks as needed. -BM. Denies SALCIDO, confusi on, pain, palpitations, dyspnea, cough, N/V, or joint pain. No signs of shoulder hand syndrome. CN exam stable. Hematoma over left eye is stable. Blood glucose is controlled. Continue to monitor and adjust as needed. Discussed not getting up without assistance. Records requested from OSH and awaiting delivery. Will get second opinion on thrombus vs stenosis once received. All records, vitals, labs and medications were reviewed. No other issues per patient, nursing or therapy. Objective - Exam Narrative Exam: MUSCULOSKELETAL SPECIALTY EXAM CONSTITUTIONAL: Well developed, well nourished, appropriately groomed. RIGHT hand dominant. Left Eye: mild subconjunctival hemorrhage on left lateral aspect improving RESPIRATORY: Clear to ascultation bilaterally, no increased work of breathing CARDIOVASCULAR: Regular Rate/ Rhythm, no swelling, edema or tenderness in BUE or BLE except for mild LLE swelling at the ankle. All extremities warm. GI: + bowel sounds, soft, NTTP, nondistended. INTEGUMENTARY: Normal except for small hematoma over left eye MUSCULOSKELETAL: BUE and BLE normal without defect, crepitus, subluxation, effusion, arthritic changes or TTP. SA EF WE EE FF FA HF KE ADF EHL APF R 5/ 5/5 5/ 5/ 5/ 5/ 5/5 5/ 5/5 5/5 5/5 L 3/5 3/5 3/5 3/5 3/5 3/ 3/5 4-/5 3-/5 3/5 3/5 Left side weakness is variable and is decreased from her admission, seems to fluctuate day to day, monitor. No other increased symptoms/signs of worsening neurological function. ROM is decreased on the left upper and lower extremities (full passive) and within functional limits on the right upper and lower extremities. Tone is decreased on the left upper and lower extremities and normal on the right upper and lower extremities. NEURO: CN II-XII grossly intact except for left facial droop, decreased shoulder shrug on the left, tongue protrudes left. Degree of left visual field cut. Sensation intact in all extremities without extinction. Coordination intact in RUE, dysmetria noted on the LUE. No tremor noted in 4 extremities. Follows 2 step commands POSTURE and GAIT: Sitting posture good. Balance appears reasonable. Leans left, ambulates short distance PSYCH: Awake, orientated x3, affect appears euthymic. Insight appears intact. - Constitutional Vitals: Vital Signs - 12hr 10/29/18 10/29/18 10/29/18 04:58 08:53 08:54 Temperature 37.0 C 36.6 C Pulse Rate 90 88 91 H Respiratory 18 18 Rate Blood Pressure 107/70 [Right] O2 Sat by Pulse 100 94 97 Oximetry - Allied health notes Allied health notes reviewed: nursing, PT, ST, OT FIMS assessment as documented by PT/OT/ST: Grooming Patient cleans teeth/dentures: Yes Patient condon/brushes hair: Yes Patient washes, rinses and Yes dries face: Patient washes, rinses and Yes dries hands: Patient shaves: No Patient applies make-up: No Patient performs (no make-up/ 2/4 (50%) shaving): Grooming FIM Score 3. Moderate Assistance (Patient = 50% or more) Toileting Toileting Device Commode over Toilet Patient able to perform: 1/3 (33%) Toileting FIM Score 3. Moderate Assistance (Patient = 50% or more. Some lifting.) Social interaction/Memory/Problem solving Social Interaction FIM Score 6. Mod. [place] (Mostly appropriate. May need meds. No supv.) Memory FIM Score 5. Supervision (Needs cueing <10%, stressful/ unfamiliar situations.) Problem Solving FIM Score 5. Supervision (Needs cueing <10% to solve routine problems.) Transfers Mode of Locomotion: Wheelchair Bed/Chair/Wheelchair Transfers 3. Moderate Assistance (Patient = 50% or more. FIM Score Some lifting.) Toilet Transfers FIM Score 3. Moderate Assistance (Patient = 50% or more. Some lifting.) Patient transferred to: Shower Shower Transfers FIM Score 3. Moderate Assistance (Patient = 50% or more. Some lifting.) Locomotion- Stairs Device used on Stairs Handrail/s Number of Stairs Ascended/ 2 Descended Patient used handrail/support: Yes Stairs FIM Score 1. Total Assistance (Pt. < 25%, 2 person assist, or <4 stairs.) Locomotion- walk/wheelchair Most Frequent Mode of Wheelchair Locomotion: Ambulation Distance 110 Walking FIM Score 2. Maximal Assistance (Patient = 25% or more. Minimum of 50 ft.) Wheelchair Propulsion Distance 340 Wheelchair FIM Score 6. Modified [place] (Wheels a minimum of 150 ft.) Eating Eating Device Adjusted Table Height Eating FIM Score 5. Supervision/Set-Up (Needs help w/ c ontainers, cutting meat, etc.) Dressing-Upper body Patient retrieves clothing No items: Patient applies/removes UE n/a prosthesis or orthosis: Upper Body Dressing FIM Score 3. Moderate Assistance (Patient = 50% or more) Dressing-lower body Lower Body Dressing Device Biomedical Engineering Professor/Stick Patient retrieves clothing No items: Patient applies/removes LE No prosthesis or orthosis: Lower Body Dressing FIM Score 3. Moderate Assistance (Patient = 50% or more) - Labs CBC & Chem 7: 10/26/18 06:52 10/22/18 07:03 Labs: Laboratory Results - last 72 hr 10/26/18 10/26/18 10/26/18 11:41 16:07 22:27 POC Glucose 168 H 242 H 236 H 10/27/18 10/27/18 10/27/18 08:00 11:31 16:31 POC Glucose 154 H 254 H 119 H 10/27/18 10/28/18 10/28/18 21:50 07:26 12:11 POC Glucose 183 H 129 H 239 H 10/28/18 10/28/18 10/29/18 16:36 21:55 05:09 POC Glucose 194 H 158 H 129 H 10/29/18 08:43 POC Glucose 116 H Assessment and Plan I69.354 CVA Non Dom L melisa:Secondary CVA prevention, discussed prognosis and need to control HTN/DM/HLD. Will monitor for shoulder hand syndrome and post stroke depression. Refusing statin, have started Questran. 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 May need custom AFO in future. Monitor I10 Hypertension: continue medications and adjust as needed for normotension E11.9 DM: Poorly controlled, A1c 10.3 at OSH, low-dose Lantus I50.9 CHF: EF 30% monitor for exacerbation and need to diurese I25.9 CAD: s/p stent, cont ASA. Plavix d/c'd at OSH due to therapeutic lovenox E78.5 Hyperlipidemia: states she does not want to take statin due to muscle aches in past, refused other statins that are less likely to cause problems. Agreed to try Questran, welchol pills were too large. N18.9 CKD: monitor renal function closely. Refused blood draws at OSH K59.00 Constipation: Bowel program started, but she is refusing medications. Monitor. KUB ordered, suppository ordered Z73.6 ADL dysfunction: OT will work on improving ability to perform ADLs (including assistive devices) to increase independence and decrease caregiver burden and improve functional transfers and mobility training. R26.2 Difficulty walking: PT will work on gait training and proper use of assistive devices and advance as appropriate to use of stairs and outside ambulation on uneven surfaces. R26.81 Unsteadiness on feet: PT will work on improving static and dynamic sitting and standing balance as well as proper use of assistive devices to decrease risk of falls. R26.89 Abnormality of gait: PT will work to improve safety and efficiency of gait through neuromotor training and gait training along with instruction on proper use of assistive devices. M62.81 Muscle weakness: PT & OT will work on strengthening exercises to improve functional strength including mixture of closed and open kinetic chain exercises. R53.81 Debility: PT & OT will work on improving overall functional status to improve participation with ADLs, mobility and social involvement. R53.83 Fatigue: PT & OT will work on improving endurance through aerobic exerc ises and therapeutic activity while monitoring patients tolerance for activity and vital signs as needed. DVT ppx: on therapeutic lovenox for renal artery stenosis and possible pulmonary artery occlusion - review of OSH records favored thrombus but not definitive. Pain: Continue physical modalities in therapy and pain medications as needed to achieve functional pain control. Sleep: Monitor and address as needed. Previously on melatonin which we do not carry, low-dose trazodone seems to make her too drowsyhave DC'd Bowel: Milk of magnesia and suppositories. Monitor and address as needed. Needs medications today, will alert nursing. Appetite: Monitor and address as needed. Discharge planning: Pending therapy progress and care plan meeting. Will continue discussion with therapy team, SW, patient and family. Restrictions/ Precautions: Falls WB status: FWB Functional Hx: ADLs: Independent Cognition: Independent Mobility: No AD Barriers to Discharge: Decreased mobility and ability to perform self care, balance deficits, weakness Estimated Length of Stay: 14-21 days Discharge Destination: Home with family
[2018-10-29] MEDS: LOPRESSOR PO SCH ×2 (12:11→22:09)
[2018-10-29] MEDS: NORVASC PO SCH (12:15)
[2018-10-29] MEDS ORDERED: DULCOLAX PR ONE (15:00)
[2018-10-29] MEDS: TYLENOL PO PRN (16:27)
[2018-10-29] MEDS: LANTUS SUB-Q SCH (22:09)
[2018-10-30] MEDS: HumaLOG SUB-Q SCH ×4 (07:30→22:38)
[2018-10-30] MEDS: LOPRESSOR PO SCH ×2 (07:55→21:52)
[2018-10-30] MEDS: LOVENOX SUB-Q SCH ×3 (07:55→21:53)
[2018-10-30] MEDS: CLARITIN PO SCH (07:55)
[2018-10-30] MEDS: HALFPRIN EC PO SCH (07:55)
[2018-10-30] MEDS: QUESTRAN PO SCH ×2 (07:55→21:53)
[2018-10-30] MEDS: NORVASC PO SCH (07:56)
[2018-10-30] MEDS: TYLENOL PO PRN (21:52)
[2018-10-30] MEDS: LANTUS SUB-Q SCH (22:32)
--- NOTE | 2018-10-31 07:22 | Progress Note ---
Subjective Date of service: 10/31/18 Principal diagnosis: Right MCA CVA Interval history: 63-year-old right-hand dominant female was found on the floor with left-sided weakness by her daughter. She presented to [facility] was noted to have NIHSS of [address] showed right MCA CVA. She was outside the window for TPA however was a candidate for thrombectomy and after undergoing this procedure was admitted to the ICU. She had fairly recovery from the thrombectomy but still has left-sided weakness. Further workup with labs showed hemoglobin A1c of 10.3, LDL 173, TSH 2.014. She was noted to have elevated troponins without chest pain which was monitored and managed medically. She underwent an echo which showed 30% ejection fraction. During her stay at [facility] she was incidentally found to have a possible right lower lobe pulmonary artery occlusion and a left renal artery occlusion versus stenosis. Daughter states she was told the pulmonary artery occlusion was revisited and determined not to be an issue however I do not have paperwork to confirm that vascular surgery was consult at for the left renal artery occlusion versus severe stenosis and recommended no intervention but did ask for the patient to follow-up in clinic. She was placed on anti-coagulation level of Lovenox. Due to this she was also taken off of her prior Plavix dose. 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 Per review of records the mass has not been biopsied and a malignancy has not been ruled out however the patient's family again states that they have been told this was not cancerous in the past. Plan was also to follow-up for this mass and vascular clinic. Patient is a Jew and does not want any blood products. She also has a follow-up with neurology in 4-5 weeks. Patient is participating in therapy and making reasonable progress, LUE has intermittent improvement. Taking rest breaks as needed. +BM. Denies SALCIDO, confusi on, pain, palpitations, dyspnea, cough, N/V, or joint pain. No signs of shoulder hand syndrome. CN exam stable. Hematoma over left eye is improved. Blood glucose is controlled. Continue to monitor and adjust as needed. Discussed not getting up without assistance. Awaiting records requested from OSH. Will get second opinion on thrombus vs stenosis once received. All records, vitals, labs and medications were reviewed. No other issues per patient, nursing or therapy. Objective - Exam Narrative Exam: MUSCULOSKELETAL SPECIALTY EXAM CONSTITUTIONAL: Well developed, well nourished, appropriately groomed. RIGHT hand dominant. Left Eye: mild subconjunctival hemorrhage on left lateral aspect improving RESPIRATORY: Clear to ascultation bilaterally, no increased work of breathing CARDIOVASCULAR: Regular Rate/ Rhythm, no swelling, edema or tenderness in BUE or BLE except for mild LLE swelling at the ankle. All extremities warm. GI: + bowel sounds, soft, NTTP, nondistended. INTEGUMENTARY: Normal except for small hematoma over left eye which is improving, monitor MUSCULOSKELETAL: BUE and BLE normal without defect, crepitus, subluxation, effusion, arthritic changes or TTP. SA EF WE EE FF FA HF KE ADF EHL APF R 5/5 5/5 5/5 5/5 5/5 5/5 5/5 5/5 5/5 5/5 5/5 L 3/5 3/5 3/5 3/5 3/5 3/5 3/5 4-/5 3-/5 3/5 3/5 Left side weakness is variable and is decreased from her admission, seems to fluctuate day to day, monitor. No other increased symptoms/signs of worsening neurological function. ROM is decreased on the left upper and lower extremities (full passive) and within functional limits on the right upper and lower extremities. Tone is decreased on the left upper and lower extremities and normal on the right upper and lower extremities. NEURO: CN II-XII grossly intact except for left facial droop, decreased shoulder shrug on the left, tongue protrudes left. Degree of left visual field cut. Sensation intact in all extremities without extinction. Coordination intact in RUE, dysmetria noted on the LUE. No tremor noted in 4 extremities. Follows 2 step commands POSTURE and GAIT: Sitting posture good. Balance appears reasonable. Leans left, ambulates short distance PSYCH: Awake, orientated x3, affect appears euthymic. Insight appears intact. - Constitutional Vitals: Vital Signs - 12hr 10/30/18 10/30/18 10/30/18 20:11 21:52 22:00 Temperature 36.9 C Pulse Rate 105 H 105 H Respiratory 18 18 18 Rate Blood Pressure 114/81 114/81 O2 Sat by Pulse 94 Oximetry 10/31/18 04:56 Temperature 36.3 C L Pulse Rate 102 H Respiratory 20 Rate Blood Pressure 103/72 O2 Sat by Pulse 97 Oximetry - Allied health notes Allied health notes reviewed: nursing, PT, ST, OT FIMS assessment as documented by PT/OT/ST: Grooming Patient cleans teeth/dentures: Yes Patient condon/brushes hair: Yes Patient washes, rinses and Yes dries face: Patient washes, rinses and Yes dries hands: Patient shaves: No Patient applies make-up: No Patient performs (no make-up/ 2/4 (50%) shaving): Grooming FIM Score 3. Moderate Assistance (Patient = 50% or more) Toileting Toileting Device Commode over Toilet Patient able to perform: 1/3 (33%) Toileting FIM Score 3. Moderate Assistance (Patient = 50% or more. Some lifting.) Social interaction/Memory/Problem solving Social Interaction FIM Score 7. Complete [place] (Interacts appropriately. Controls temper.) Memory FIM Score 7. Complete [place] (Remembers people and routines.) Problem Solving FIM Score 6. Mod. [place] (Mild difficulty or needs more time w/ complex.) Transfers Mode of Locomotion: Wheelchair Bed/Chair/Wheelchair Transfers 3. Moderate Assistance (Patient = 50% or more. FIM Score Some lifting.) Toilet Transfers FIM Score 3. Moderate Assistance (Patient = 50% or more. Some lifting.) Patient transferred to: Shower Shower Transfers FIM Score 3. Moderate Assistance (Patient = 50% or more. Some lifting.) Locomotion- Stairs Device used on Stairs Handrail/s Number of Stairs Ascended/ 2 Descended Patient used handrail/support: Yes Stairs FIM Score 1. Total Assistance (Pt. < 25%, 2 person assist, or <4 stairs.) Locomotion- walk/wheelchair Most Frequent Mode of Wheelchair Locomotion: Ambulation Distance 120 Walking FIM Score 2. Maximal Assistance (Patient = 25% or more. Minimum of 50 ft.) Wheelchair Propulsion Distance 340 Wheelchair FIM Score 6. Modified [place] (Wheels a minimum of 150 ft.) Eating Eating Device Adjusted Table Height Eating FIM Score 5. Supervision/Set-Up (Needs help w/ containers, cutting meat, etc.) Dressing-Upper body Patient retrieves clothing No items: Patient applies/removes UE n/a prosthesis or orthosis: Upper Body Dressing FIM Score 3. Moderate Assistance (Patient = 50% or more) Dressing-lower body Lower Body Dressing Device Supervisor Customer Services/Stick Patient retrieves clothing No items: Patient applies/removes LE No prosthesis or orthosis: Lower Body Dressing FIM Score 3. Moderate Assistance (Patient = 50% or more) - Labs CBC & Chem 7: 10/26/18 06:52 10/22/18 07:03 Labs: Laboratory Results - last 72 hr 10/28/18 10/28/18 10/28/18 07:26 12:11 16:36 POC Glucose 129 H 239 H 194 H 10/28/18 10/29/18 10/29/18 21:55 05:09 08:43 POC Glucose 158 H 129 H 116 H 10/29/18 10/29/18 10/29/18 12:07 17:27 22:16 POC Glucose 156 H 227 H 139 H 10/30/18 10/30/18 10/30/18 07:52 11:54 16:28 POC Glucose 93 174 H 146 H 10/30/18 21:46 POC Glucose 168 H Assessment and Plan I69.354 CVA Non Dom L melisa:Secondary CVA prevention, discussed prognosis and need to control HTN/DM/HLD. Will monitor for shoulder hand syndrome and post stroke depression. Refusing statin, have started Questran. 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 May need custom AFO in future. Monitor I10 Hypertension: continue medications and adjust as needed for normotension E11.9 DM: Poorly controlled, A1c 10.3 at OSH, low-dose Lantus I50.9 CHF: EF 30% monitor for exacerbation and need to diurese I25.9 CAD: s/p stent, cont ASA. Plavix d/c'd at OSH due to therapeutic lovenox E78.5 Hyperlipidemia: states she does not want to take statin due to muscle aches in past, refused other statins that are less likely to cause problems. Agreed to try Questran, welchol pills were too large. N18.9 CKD: monitor renal function closely. Refused blood draws at OSH K59.00 Constipation: Bowel program started, but she is refusing medications. Monitor. KUB ordered, suppository ordered Z73.6 ADL dysfunction: OT will work on improving ability to perform ADLs (including assistive devices) to increase independence and decrease caregiver burden and improve functional transfers and mobility training. R26.2 Difficulty walking: PT will work on gait training and proper use of assistive devices and advance as appropriate to use of stairs and outside ambu lation on uneven surfaces. R26.81 Unsteadiness on feet: PT will work on improving static and dynamic sitting and standing balance as well as proper use of assistive devices to decrease risk of falls. R26.89 Abnormality of gait: PT will work to improve safety and efficiency of gait through neuromotor training and gait training along with instruction on proper use of assistive devices. M62.81 Muscle weakness: PT & OT will work on strengthening exercises to improve functional strength including mixture of closed and open kinetic chain exercises. R53.81 Debility: PT & OT will work on improving overall functional status to improve participation with ADLs, mobility and social involvement. R53.83 Fatigue: PT & OT will work on improving endurance through aerobic exercises and therapeutic activity while monitoring patients tolerance for activity and vital signs as needed. DVT ppx: on therapeutic lovenox for renal artery stenosis and possible pulmonary artery occlusion - review of OSH records favored thrombus but not definitive, records requested for second opinion to consider removal of a/c. Pain: Continue physical modalities in therapy and pain medications as needed to achieve functional pain control. Sleep: Monitor and address as needed. Previously on melatonin which we do not carry, low-dose trazodone seems to make her too drowsyhave DC'd Bowel: Milk of magnesia and suppositories. Monitor and address as needed. Needs medications today, will alert nursing. Appetite: Monitor and address as needed. Discharge planning: Pending therapy progress and care plan meeting. Will co ntinue discussion with therapy team, SW, patient and family. Restrictions/ Precautions: Falls WB status: FWB Functional Hx: ADLs: Independent Cognition: Independent Mobility: No AD Barriers to Discharge: Decreased mobility and ability to perform self care, balance deficits, weakness Estimated Length of Stay: 14-21 days Discharge Destination: Home with family
[2018-10-31] MEDS: LOPRESSOR PO SCH (08:34)
[2018-10-31] MEDS: NORVASC PO SCH (08:34)
[2018-10-31] MEDS: HALFPRIN EC PO SCH (08:35)
[2018-10-31] MEDS: CLARITIN PO SCH (08:35)
[2018-10-31] MEDS: QUESTRAN PO SCH ×2 (08:35→22:33)
[2018-10-31] MEDS: LOVENOX SUB-Q SCH ×2 (09:38→22:33)
[2018-10-31] MEDS: HumaLOG SUB-Q SCH (22:00)
[2018-10-31] MEDS: LANTUS SUB-Q SCH (22:00)
[2018-11-01] MEDS: LOPRESSOR PO SCH ×2 (07:10→09:54)
[2018-11-01] MEDS: HumaLOG SUB-Q SCH ×4 (09:48→22:18)
[2018-11-01] MEDS: HALFPRIN EC PO SCH (09:53)
[2018-11-01] MEDS: NORVASC PO SCH (09:53)
[2018-11-01] MEDS: QUESTRAN PO SCH ×2 (09:54→22:20)
[2018-11-01] MEDS: CLARITIN PO SCH (09:54)
[2018-11-01] MEDS: LOVENOX SUB-Q SCH ×2 (09:54→22:15)
[2018-11-01] MEDS: LANTUS SUB-Q SCH (22:18)
[2018-11-02] MEDS: LOPRESSOR PO SCH ×4 (00:45→21:36)
[2018-11-02] MEDS: HumaLOG SUB-Q SCH ×3 (08:23→16:35)
[2018-11-02] MEDS: HALFPRIN EC PO SCH (08:46)
[2018-11-02] MEDS: CLARITIN PO SCH (08:46)
[2018-11-02] MEDS: LOVENOX SUB-Q SCH ×3 (08:46→21:36)
[2018-11-02] MEDS: QUESTRAN PO SCH ×2 (08:50→21:37)
[2018-11-03] MEDS: HumaLOG SUB-Q SCH ×8 (00:22→23:08)
[2018-11-03] MEDS: LANTUS SUB-Q SCH ×2 (00:23→22:53)
--- NOTE | 2018-11-03 11:19 | Progress Note ---
Subjective Date of service: 11/03/18 Principal diagnosis: Right MCA CVA Interval history: 63-year-old right-hand dominant female was found on the floor with left-sided weakness by her daughter. She presented to [facility] was noted to have NIHSS of [address] showed right MCA CVA. She was outside the window for TPA however was a candidate for thrombectomy and after undergoing this procedure was admitted to the ICU. She had fairly recovery from the thrombectomy but still has left-sided weakness. Further workup with labs showed hemoglobin A1c of 10.3, LDL 173, TSH 2.014. She was noted to have elevated troponins without chest pain which was monitored and managed medically. She underwent an echo which showed 30% ejection fraction. During her stay at [facility] she was incidentally found to have a possible right lower lobe pulmonary artery occlusion and a left renal artery occlusion versus stenosis. Daughter states she was told the pulmonary artery occlusion was revisited and determined not to be an issue however I do not have paperwork to confirm that vascular surgery was consult at for the left renal artery occlusion versus severe stenosis and recommended no intervention but did ask for the patient to follow-up in clinic. She was placed on anti-coagulation level of Lovenox. Due to this she was also taken off of her prior Plavix dose. 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 Per review of records the mass has not been biopsied and a malignancy has not been ruled out however the patient's family again states that they have been told this was not cancerous in the past. Plan was also to follow-up for this mass and vascular clinic. Patient is a [employer] and does not want any blood products. She also has a follow-up with neurology in 4-5 weeks. Patient is participating in therapy and making reasonable progress, LUE has intermittent improvement. Taking rest breaks as needed. +BM. Denies SALCIDO, confusi on, pain, palpitations, dyspnea, cough, N/V, or joint pain. No signs of shoulder hand syndrome. CN exam stable. Hematoma over left eye is improved. Blood glucose is controlled. BP controlled - one incident with a lower value. Continue to monitor and adjust as needed. Discussed not getting up without assistance. Awaiting records requested from OSH. Will get second opinion on thrombus vs s tenosis once received. If she has to discharge prior to receipt of the records we will continue A/C out of caution with a close follow up with vascular or hematology. Discussed in Team Conference. Still making some progress with ambulation and ADLs. Cognition improving, some issues remain with complex or abstract problems. Dysphagia improving. Awaiting insurance extension, I feel she would co ntinue to improve with another 7-10 days but she is starting to plateau. At this point she will need a w/c, possibly a BSC and therapy and nursing. All records, vitals, labs and medications were reviewed. No other issues per patient, nursing or therapy. Objective - Exam Narrative Exam: MUSCULOSKELETAL SPECIALTY EXAM CONSTITUTIONAL: Well developed, well nourished, appropriately groomed. RIGHT hand dominant. RESPIRATORY: Clear to ascultation bilaterally, no increased work of breathing CARDIOVASCULAR: Regular Rate/ Rhythm, no swelling, edema or tenderness in BUE or BLE except for mild LLE swelling at the ankle. All extremities warm. GI: + bowel sounds, soft, NTTP, nondistended. INTEGUMENTARY: Normal except for small hematoma over left eye which is improving, monitor MUSCULOSKELETAL: BUE and BLE normal without defect, crepitus, subluxation, effusion, arthritic changes or TTP. SA EF WE EE FF FA HF KE ADF EHL APF R 5/5 5/5 5/5 5/5 5/5 5/5 5/5 5/5 5/5 5/5 5/5 L 3/5 3/5 3/5 3/5 3/5 3/5 4-/5 4-/5 3-/5 3/5 3/5 Left side weakness is variable and is decreased from her admission, seems to fluctuate day to day, monitor. No other increased symptoms/signs of worsening neurological function. ROM is decreased on the left upper and lower extremities (full passive) and within functional limits on the right upper and lower extremities. Tone is decreased on the left upper and lower extremities and normal on the right upper and lower extremities. NEURO: CN II-XII grossly intact except for left facial droop, decreased shoulder shrug on the left, tongue protrudes left. Degree of left visual field cut. Sensation intact in all extremities without extinction. Coordination intact in RUE, dysmetria noted on the LUE. No tremor noted in 4 extremities. Follows 2 step commands POSTURE and GAIT: Sitting posture good. Balance appears reasonable. Leans left, ambulates short distance PSYCH: Awake, orientated x3, affect appears euthymic. Insight appears intact. - Constitutional Vitals: Vital Signs - 12hr 11/03/18 11/03/18 11/03/18 01:15 04:40 07:00 Temperature 36.9 C 37.0 C 37.2 C Pulse Rate 85 88 65 Respiratory 17 16 16 Rate Blood Pressure 110/82 124/75 Blood Pressure 134/97 [Right] O2 Sat by Pulse 99 93 96 Oximetry 11/03/18 07:31 Temperature Pulse Rate Respiratory Rate Blood Pressure 134/97 Blood Pressure [Right] O2 Sat by Pulse Oximetry - Allied health notes Allied health notes reviewed: nursing, PT, ST, OT FIMS assessment as documented by PT/OT/ST: Grooming Patient cleans teeth/dentures: Yes Patient condon/brushes hair: Yes Patient washes, rinses and Yes dries face: Patient washes, rinses and Yes dries hands: Patient shaves: No Patient applies make-up: No Patient performs (no make-up/ 2/4 (50%) shaving): Grooming FIM Score 3. Moderate Assistance (Patient = 50% or more) Toileting Toileting Device Commode over Toilet Patient able to: Adjust clothes before Patient able to perform: 1/3 (33%) Toileting FIM Score 2. Maximal Assistance (Patient = 25% or more) Social interaction/Memory/Problem solving Social Interaction FIM Score 7. Complete [place] (Interacts appropriately. Controls temper.) Memory FIM Score 7. Complete [place] (Remembers people and routines.) Problem Solving FIM Score 6. Mod. [place] (Mild difficulty or needs more time w/ complex.) Transfers Mode of Locomotion: Wheelchair Bed/Chair/Wheelchair Transfers 5. Supervision (Needs supv. or set-up for FIM Score sliding board, foot rests.) Toilet Transfers FIM Score 3. Moderate Assistance (Patient = 50% or more. Some lifting.) Patient transferred to: Tub Tub Transfers FIM Score 4. Minimal Assistance (Patient = 75% or more. Needs touching.) Shower Transfers FIM Score 3. Moderate Assistance (Patient = 50% or more. Some lifting.) Locomotion- Stairs Device used on Stairs Handrail/s Number of Stairs Ascended/ 2 Descended Patient used handrail/support: Yes Stairs FIM Score 1. Total Assistance (Pt. < 25%, 2 person assist, or <4 stairs.) Locomotion- walk/wheelchair Most Frequent Mode of Wheelchair Locomotion: Ambulation Distance 155 Walking FIM Score 4. Minimal Assistance (Patient = 75% or more. Minimum of 150 ft.) Wheelchair Propulsion Distance 340 Wheelchair FIM Score 6. Modified [place] (Wheels a minimum of 150 ft.) Eating Eating Device Adjusted Table Height Eating FIM Score 6. Modified [place] (Special consistency or uses device.) Dressing-Upper body Patient retrieves clothing No items: Patient applies/removes UE n/a prosthesis or orthosis: Upper Body Dressing FIM Score 4. Minimal Assistance (Patient = 75% or more. Needs touching.) Dressing-lower body Lower Body Dressing Device Piping Design Specialist/Stick Patient retrieves clothing No items: Patient applies/removes LE No prosthesis or orthosis: Lower Body Dressing FIM Score 4. Minimal Assistance (Patient = 75% or more. Needs touching.) - Labs CBC & Chem 7: 10/26/18 06:52 10/22/18 07:03 Labs: Laboratory Results - last 72 hr 10/31/18 10/31/18 10/31/18 11:40 16:33 21:40 POC Glucose 234 H 102 154 H 11/01/18 11/01/18 11/01/18 09:11 11:36 16:20 POC Glucose 132 H 180 H 99 11/01/18 11/02/18 11/02/18 21:46 07:33 11:50 POC Glucose 83 96 124 H 11/02/18 11/02/18 16:26 22:51 POC Glucose 125 H 114 H Assessment and Plan I69.354 CVA Non Dom L melisa:Secondary CVA prevention, discussed prognosis and need to control HTN/DM/HLD. Will monitor for shoulder hand syndrome and post stroke depression. Refusing statin, have started Questran. I69.391 Dysphagia: MEASUREMENT ADVISOR noted oral phase dysphagia, advancing diet as able. M21.372 Left foot drop: AFO, continue therapy. May need custom AFO in future. Monitor I10 Hypertension: continue medications and adjust as needed for normotension E11.9 DM: Poorly controlled, A1c 10.3 at OSH, low-dose Lantus I50.9 CHF: EF 30% monitor for exacerbation and need to diurese I25.9 CAD: s/p stent, cont ASA. Plavix d/c'd at OSH due to therapeutic lovenox E78.5 Hyperlipidemia: states she does not want to take statin due to muscle aches in past, refused other statins that are less likely to cause problems. Agreed to try Questran, welchol pills were too large. N18.9 CKD: monitor renal function closely. Refused blood draws at OSH K59.00 Constipation: Bowel program started, but she is refusing medications. M onitor. KUB ordered, suppository ordered Z73.6 ADL dysfunction: OT will work on improving ability to perform ADLs (including assistive devices) to increase independence and decrease caregiver burden and improve functional transfers and mobility training. R26.2 Difficulty walking: PT will work on gait training and proper use of assistive devices and advance as appropriate to use of stairs and outside ambulation on uneven surfaces. R26.81 Unsteadiness on feet: PT will work on improving static and dynamic sitting and standing balance as well as proper use of assistive devices to decrease risk of falls. R26.89 Abnormality of gait: PT will work to improve safety and efficiency of gait through neuromotor training and gait training along with instruction on proper use of assistive devices. M62.81 Muscle weakness: PT & OT will work on strengthening exercises to improve functional strength including mixture of closed and open kinetic chain exercises. R53.81 Debility: PT & OT will work on improving overall functional status to improve participation with ADLs, mobility and social involvement. R53.83 Fatigue: PT & OT will work on improving endurance through aerobic exercises and therapeutic activity while monitoring patients tolerance for activity and vital signs as needed. DVT ppx: on therapeutic lovenox for renal artery stenosis and possible pulmonary artery occlusion - review of OSH available records favored thrombus but not definitive, records requested for second opinion to consider removal of a/c. Pain: Continue physical modalities in therapy and pain medications as needed to achieve functional pain control. Sleep: Monitor and address as needed. Previously on melatonin which we do not carry, low-dose trazodone seems to make her too drowsyhave DC'd Bowel: Milk of magnesia and suppositories. Monitor and address as needed. Appetite: Monitor and address as needed. Discharge planning: Pending therapy progress and care plan meeting. Will continue discussion with therapy team, SW, patient and family. Restrictions/ Precautions: Falls WB status: FWB Functional Hx: ADLs: Independent Cognition: Independent Mobility: No AD Barriers to Discharge: Decreased mobility and ability to perform self care, balance deficits, weakness Estimated Length of Stay: 14-21 days, pending insurance approval and patient improvement, look to to family training on 11/12 and d/c 11/13. Discharge Destination: Home with family
[2018-11-03] MEDS: HALFPRIN EC PO SCH (11:34)
[2018-11-03] MEDS: CLARITIN PO SCH (11:34)
[2018-11-03] MEDS: LOPRESSOR PO SCH ×2 (11:34→23:02)
[2018-11-03] MEDS: NORVASC PO SCH ×2 (11:34→11:35)
[2018-11-03] MEDS: LOVENOX SUB-Q SCH ×2 (11:35→22:52)
[2018-11-03] MEDS: QUESTRAN PO SCH ×2 (11:36→22:52)
[2018-11-04] MEDS: HumaLOG SUB-Q SCH ×3 (08:00→16:23)
[2018-11-04] MEDS: LOPRESSOR PO SCH ×2 (11:45→21:32)
[2018-11-04] MEDS: CLARITIN PO SCH (11:50)
[2018-11-04] MEDS: HALFPRIN EC PO SCH (11:50)
[2018-11-04] MEDS: NORVASC PO SCH (11:50)
[2018-11-04] MEDS: LOVENOX SUB-Q SCH ×2 (11:55→21:32)
[2018-11-04] MEDS: QUESTRAN PO SCH (11:55)
[2018-11-04] MEDS: LANTUS SUB-Q SCH (21:32)
[2018-11-05] MEDS: HumaLOG SUB-Q SCH ×5 (00:08→22:07)
[2018-11-05] MEDS: QUESTRAN PO SCH ×3 (06:19→21:51)
[2018-11-05] MEDS: CLARITIN PO SCH (09:13)
[2018-11-05] MEDS: HALFPRIN EC PO SCH (09:13)
[2018-11-05] MEDS: LOPRESSOR PO SCH ×2 (09:13→21:52)
[2018-11-05] MEDS: LOVENOX SUB-Q SCH ×2 (09:13→21:51)
[2018-11-05] MEDS: NORVASC PO SCH (09:13)
--- NOTE | 2018-11-05 19:25 | Progress Note ---
Subjective Date of service: 11/05/18 Principal diagnosis: Right MCA CVA Interval history: 63-year-old right-hand dominant female was found on the floor with left-sided weakness by her daughter. She presented to [facility] was noted to have NIHSS of [address] showed right MCA CVA. She was outside the window for TPA however was a candidate for thrombectomy and after undergoing this procedure was admitted to the ICU. She had fairly recovery from the thrombectomy but still has left-sided weakness. Further workup with labs showed hemoglobin A1c of 10.3, LDL 173, TSH 2.014. She was noted to have elevated troponins without chest pain which was monitored and managed medically. She underwent an echo which showed 30% ejection fraction. During her stay at [facility] she was incidentally found to have a possible right lower lobe pulmonary artery occlusion and a left renal artery occlusion versus stenosis. Daughter states she was told the pulmonary artery occlusion was revisited and determined not to be an issue however I do not have paperwork to confirm that vascular surgery was consult at for the left renal artery occlusion versus severe stenosis and recommended no intervention but did ask for the patient to follow-up in clinic. She was placed on anti-coagulation level of Lovenox. Due to this she was also taken off of her prior Plavix dose. 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 Per review of records the mass has not been biopsied and a malignancy has not been ruled out however the patient's family again states that they have been told this was not cancerous in the past. Plan was also to follow-up for this mass and vascular clinic. Patient is a [employer] and does not want any blood products. She also has a follow-up with neurology in 4-5 weeks. Patient is participating in therapy and making reasonable progress, LUE has intermittent improvement. Taking rest breaks as needed. +BM. Denies SALCIDO, confusi on, pain, palpitations, dyspnea, cough, N/V, or joint pain. No signs of shoulder hand syndrome. CN exam stable. Hematoma over left eye is improved. Blood glucose is controlled. BP controlled. Continue to monitor and adjust as needed. Discussed not getting up without assistance. Awaiting records requested from OSH. Will get second opinion on thrombus vs stenosis once received. If she has to discharge prior to receipt of the records we will continue A/C out of caution with a close follow up with vascular or hematology. All records, vitals, labs and medications were reviewed. No other issues per patient, nursing or therapy. Objective - Exam Narrative Exam: MUSCULOSKELETAL SPECIALTY EXAM CONSTITUTIONAL: Well developed, well nourished, appropriately groomed. RIGHT hand dominant. RESPIRATORY: Clear to ascultation bilaterally, no increased work of breathing CARDIOVASCULAR: Regular Rate/ Rhythm, no swelling, edema or tenderness in BUE or BLE except for mild LLE swelling at the ankle. All extremities warm. GI: + bowel sounds, soft, NTTP, nondistended. INTEGUMENTARY: Normal except for small hematoma over left eye which is improving, monitor MUSCULOSKELETAL: BUE and BLE normal without defect, crepitus, subluxation, effusion, arthritic changes or TTP. SA EF WE EE FF FA HF KE ADF EHL APF R 5/5 5/5 5/5 5/5 5/5 5/5 5/5 5/5 5/5 5/5 5/5 L 3/5 3/5 3/5 3/5 3/5 3/5 4-/5 4-/5 3-/5 3/5 3/5 Left side weakness is variable and is decreased from her admission, seems to fluctuate day to day, monitor. No other increased symptoms/signs of worsening neurological function. ROM is decreased on the left upper and lower extremities (full passive) and within functional limits on the right upper and lower extremities. Tone is decreased on the left upper and lower extremities and normal on the right upper and lower extremities. NEURO: CN II-XII grossly intact except for left facial droop, decreased shoulder shrug on the left, tongue protrudes left. Degree of left visual field cut. Sensation intact in all extremities without extinction. Coordination intact in RUE, dysmetria noted on the LUE. No tremor noted in 4 extremities. Follows 2 step commands POSTURE and GAIT: Sitting posture good. Balance poor. Leans left, ambulating longer distance PSYCH: Awake, orientated x3, affect appears euthymic. Insight appears intact. - Constitutional Vitals: Vital Signs - 12hr 11/05/18 11/05/18 11/05/18 07:44 12:28 17:00 Temperature 37.1 C 36.8 C Pulse Rate 83 82 Respiratory 18 18 Rate Blood Pressure 124/86 Blood Pressure 124/86 [Right] O2 Sat by Pulse 99 Oximetry - Allied health notes Allied health notes reviewed: nursing, PT, ST, OT FIMS assessment as documented by PT/OT/ST: Grooming Patient cleans teeth/dentures: Yes Patient condon/brushes hair: Yes Patient washes, rinses and Yes dries face: Patient washes, rinses and Yes dries hands: Patient shaves: No Patient applies make-up: No Patient performs (no make-up/ 2/4 (50%) shaving): Grooming FIM Score 3. Moderate Assistance (Patient = 50% or more) Toileting Toileting Device Commode over Toilet Patient able to: Adjust clothes before Patient able to perform: 1/3 (33%) Toileting FIM Score 3. Moderate Assistance (Patient = 50% or more. Some lifting.) Social interaction/Memory/Problem solving Social Interaction FIM Score 7. Complete [place] (Interacts appropriately. Controls temper.) Memory FIM Score 7. Complete [place] (Remembers people and routines.) Problem Solving FIM Score 7. Complete [place] (Solves complex problems. Self corrects.) Transfers Mode of Locomotion: Wheelchair Bed/Chair/Wheelchair Transfers 5. Supervision (Needs supv. or set-up for FIM Score sliding board, foot rests.) Toilet Transfers FIM Score 3. Moderate Assistance (Patient = 50% or more. Some lifting.) Patient transferred to: Tub Tub Transfers FIM Score 4. Minimal Assistance (Patient = 75% or more. Needs touching.) Shower Transfers FIM Score 3. Moderate Assistance (Patient = 50% or more. Some lifting.) Locomotion- Stairs Device used on Stairs Handrail/s Number of Stairs Ascended/ 2 Descended Patient used handrail/support: Yes Stairs FIM Score 1. Total Assistance (Pt. < 25%, 2 person assist, or <4 stairs.) Locomotion- walk/wheelchair Most Frequent Mode of Wheelchair Locomotion: Ambulation Distance 114 Walking FIM Score 4. Minimal Assistance (Patient = 75% or more. Minimum of 150 ft.) Wheelchair Propulsion Distance 340 Wheelchair FIM Score 6. Modified [place] (Wheels a minimum of 150 ft.) Eating Eating Device Adjusted Table Height Eating FIM Score 5. Supervision/Set-Up (Needs help w/ containers, cutting meat, etc.) Dressing-Upper body Patient retrieves clothing No items: Patient applies/removes UE n/a prosthesis or orthosis: Upper Body Dressing FIM Score 3. Moderate Assistance (Patient = 50% or more) Dressing-lower body Lower Body Dressing Device Roller Maker/Stick Patient retrieves clothing No items: Patient applies/removes LE No prosthesis or orthosis: Lower Body Dressing FIM Score 3. Moderate Assistance (Patient = 50% or more) - Labs CBC & Chem 7: 10/26/18 06:52 10/22/18 07:03 Labs: Laboratory Results - last 72 hr 11/02/18 11/03/18 11/03/18 22:51 07:34 11:17 POC Glucose 114 H 113 H 232 H 11/03/18 11/03/18 11/04/18 16:41 22:38 12:41 POC Glucose 80 284 H 179 H 11/04/18 11/04/18 11/05/18 18:29 22:16 08:58 POC Glucose 170 H 103 87 11/05/18 11/05/18 12:29 18:10 POC Glucose 173 H 144 H Assessment and Plan I69.354 CVA Non Dom L melisa:Secondary CVA prevention, discussed prognosis and need to control HTN/DM/HLD. Will monitor for shoulder hand syndrome and post stroke depression. Refusing statin, have started Questran. I69.391 Dysphagia: COBOL ENGINEER noted oral phase dysphagia, advancing diet as able. M21.372 Left foot drop: AFO, continue therapy. May need custom AFO in future. Monitor I10 Hypertension: continue medications and adjust as needed for normotension E11.9 DM: Poorly controlled, A1c 10.3 at OSH, low-dose Lantus I50.9 CHF: EF 30% monitor for exacerbation and need to diurese I25.9 CAD: s/p stent, cont ASA. Plavix d/c'd at OSH due to therapeutic lovenox E78.5 Hyperlipidemia: states she does not want to take statin due to muscle aches in past, refused other statins that are less likely to cause problems. Agreed to try Questran, welchol pills were too large. N18.9 CKD: monitor renal function closely. Refused blood draws at OSH K59.00 Constipation: Bowel program started, but she is refusing medications. Monitor. KUB ordered, suppository ordered Z73.6 ADL dysfunction: OT will work on improving ability to perform ADLs (including assistive devices) to increase independence and decrease caregiver burden and improve functional transfers and mobility training. R26.2 Difficulty walking: PT will work on gait training and proper use of assistive devices and advance as appropriate to use of stairs and outside ambulation on uneven surfaces. R26.81 Unsteadiness on feet: PT will work on improving static and dynamic sitting and standing balance as well as proper use of assistive devices to decrease risk of falls. R26.89 Abnormality of gait: PT will work to improve safety and efficiency of gait through neuromotor training and gait training along with instruction on proper use of assistive devices. M62.81 Muscle weakness: PT & OT will work on strengthening exercises to improve functional strength including mixture of closed and open kinetic chain exe rcises. R53.81 Debility: PT & OT will work on improving overall functional status to improve participation with ADLs, mobility and social involvement. R53.83 Fatigue: PT & OT will work on improving endurance through aerobic exercises and therapeutic activity while monitoring patients tolerance for activity and vital signs as needed. DVT ppx: on therapeutic lovenox for renal artery stenosis and possible pulmonary artery occlusion - review of OSH available records favored thrombus but not definitive, records requested for second opinion to consider removal of a/c. Pain: Continue physical modalities in therapy and pain medications as needed to achieve functional pain control. Sleep: Monitor and address as needed. Previously on melatonin which we do not carry, low-dose trazodone seems to make her too drowsyhave DC'd Bowel: Milk of magnesia and suppositories. Monitor and address as needed. Appetite: Monitor and address as needed. Discharge planning: Pending therapy progress and care plan meeting. Will continue discussion with therapy team, SW, patient and family. Restrictions/ Precautions: Falls WB status: FWB Functional Hx: ADLs: Independent Cognition: Independent Mobility: No AD Barriers to Discharge: Decreased mobility and ability to perform self care, balance deficits, weakness Estimated Length of Stay: 14-21 days, pending insurance approval and patient improvement, look to to family training on 11/09 and d/c 11/10 now. Discharge Destination: Home with family
[2018-11-05] MEDS: LANTUS SUB-Q SCH (22:00)
[2018-11-06 05:07] LABS: Hematocrit 35.4 % (30.3-42.9); Hemoglobin 11.5 gm/dl (10.1-14.3); Mean Corpuscular HGB Conc 33 % (30-34); Mean Corpuscular Volume 89 fl (79-97); Platelet Count 213 K/mm3 (140-440); Red Cell Distribution Width 16.9 % (13.2-15.2)
[2018-11-06 05:31] LABS: BUN/Creatinine Ratio 11; Blood Urea Nitrogen 12 mg/dL (7-17); Calcium 8.8 mg/dL (8.4-10.2); Hemolysis Index 4
[2018-11-06] MEDS: LOPRESSOR PO SCH ×2 (08:38→22:00)
[2018-11-06] MEDS: NORVASC PO SCH (08:38)
[2018-11-06] MEDS: QUESTRAN PO SCH ×2 (09:07→22:33)
[2018-11-06] MEDS: CLARITIN PO SCH (09:07)
[2018-11-06] MEDS: HALFPRIN EC PO SCH (09:07)
[2018-11-06] MEDS: HumaLOG SUB-Q SCH ×3 (09:57→22:00)
[2018-11-06] MEDS: LOVENOX SUB-Q SCH ×2 (10:42→22:32)
[2018-11-06] MEDS: LANTUS SUB-Q SCH (22:33)
[2018-11-07] MEDS: LOVENOX SUB-Q SCH (09:15)
[2018-11-07] MEDS: HALFPRIN EC PO SCH (09:15)
[2018-11-07] MEDS: CLARITIN PO SCH (09:15)
[2018-11-07] MEDS: NORVASC PO SCH (09:15)
[2018-11-07] MEDS: QUESTRAN PO SCH ×2 (09:16→23:15)
[2018-11-07] MEDS: LOPRESSOR PO SCH ×2 (09:16→22:19)
[2018-11-07] MEDS: HumaLOG SUB-Q SCH ×3 (09:16→17:54)
--- NOTE | 2018-11-07 18:00 | Progress Note ---
Subjective Date of service: 11/07/18 Principal diagnosis: Right MCA CVA Interval history: 63-year-old right-hand dominant female was found on the floor with left-sided weakness by her daughter. She presented to [facility] was noted to have NIHSS of [address] showed right MCA CVA. She was outside the window for TPA however was a candidate for thrombectomy and after undergoing this procedure was admitted to the ICU. She had fairly recovery from the thrombectomy but still has left-sided weakness. Further workup with labs showed hemoglobin A1c of 10.3, LDL 173, TSH 2.014. She was noted to have elevated troponins without chest pain which was monitored and managed medically. She underwent an echo which showed 30% ejection fraction. 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 Daughter states she was told the pulmonary artery occlusion was revisited and determined not to be an issue however I do not have paperwork to confirm that vascular surgery was consult at for the left renal artery occlusion versus severe stenosis and recommended no intervention but did ask for the patient to follow-up in clinic. She was placed on anti-coagulation level of Lovenox. Due to this she was also taken off of her prior Plavix dose. 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 Per review of records the mass has not been biopsied and a malignancy has not been ruled out however the patient's family again states that they have been told this was not cancerous in the past. Plan was also to follow-up for this mass and vascular clinic. 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 She also has a follow-up with neurology in 4-5 weeks. Patient is participating in therapy and making reasonable progress, LUE has intermittent improvement. Taking rest breaks as needed. -BM. Denies SALCIDO, confusi on, pain, palpitations, dyspnea, cough, N/V, or joint pain. No signs of shoulder hand syndrome, overall return in LUE not as robust as I would like. CN exam stable. Hematoma over left eye is improved - has cystic quality and patient has history of cysts, bruising improving. Blood glucose is controlled and she is requesting decreased blood GLU monitoring which is in line with judaism beliefs. BP controlled. Continue to monitor and adjust as needed. Discussed not getting up without assistance. Awaiting records requested from OSH. We have requested records twice and I called and requested the attending be paged to call me back. Will get second opinion on thrombus vs stenosis if received. At this point it looks as though she will discharge prior to receipt of the records. We will continue A/C out of caution with a close follow up with vascular or hematology. Patient and daught er not willing to use lovenox. Changed to Eliquis. Discussed this with patient and her daughter (Nelsy) on the phone and they are both in agreement. Discussed issues concerning stopping medication without MD's consent (DVT/PE/ etc) and issues surrounding falling and striking her head (go to ER for CT/eval). Patient and daughter in agreement. Discussed discharge equipment. All records, vitals, labs and medications were reviewed. No other issues per patient, nursing or therapy. Objective - Exam Narrative Exam: MUSCULOSKELETAL SPECIALTY EXAM CONSTITUTIONAL: Well developed, well nourished, appropriately groomed. RIGHT hand dominant. RESPIRATORY: Clear to ascultation bilaterally, no increased work of breathing CARDIOVASCULAR: Regular Rate/ Rhythm, no swelling, edema or tenderness in BUE or BLE except for mild LLE swelling at the ankle. All extremities warm. GI: + bowel sounds, soft, NTTP, nondistended. INTEGUMENTARY: Normal except for small hematoma over left eye which is improving, monitor MUSCULOSKELETAL: BUE and BLE normal without defect, crepitus, subluxation, effusion, arthritic changes or TTP. SA EF WE EE FF FA HF KE ADF EHL APF R 5/5 5/5 5/5 5/5 5/5 5/5 5/5 5/5 5/5 5/5 5/5 L 3/5 3/5 3/5 3/5 3/5 3/5 4-/5 4-/5 3-/5 3/5 3/5 Left side weakness is variable and is decreased from her admission, seems to fluctuate day to day, monitor. No other increased symptoms/signs of worsening neurological function. ROM is decreased on the left upper and lower extremities (full passive) and within functional limits on the right upper and lower extremities. Tone is decreased on the left upper and lower extremities and normal on the right upper and lower extremities. NEURO: CN II-XII grossly intact except for left facial droop, decreased shoulder shrug on the left, tongue protrudes left. Degree of left visual field cut. Sensation intact in all extremities without extinction. Coordination intact in RUE, dysmetria noted on the LUE. No tremor noted in 4 extremities. Follows 2 step commands POSTURE and GAIT: Sitting posture good. Balance poor. Leans left, ambulating longer distance PSYCH: Awake, orientated x3, affect appears euthymic. Insight appears intact. - Constitutional Vitals: Vital Signs - 12hr 11/07/18 11/07/18 07:46 09:15 Temperature 36.8 C Pulse Rate 89 89 Respiratory 18 Rate Blood Pressure 122/85 122/85 O2 Sat by Pulse 96 Oximetry - Allied health notes Allied health notes reviewed: nursing, PT, ST, OT FIMS assessment as documented by PT/OT/ST: Grooming Patient cleans teeth/dentures: Yes Patient condon/brushes hair: Yes Patient washes, rinses and Yes dries face: Patient washes, rinses and Yes dries hands: Patient shaves: No Patient applies make-up: No Patient performs (no make-up/ 2/4 (50%) shaving): Patient performs (w/ make-up/ 2/5 (40%) shaving): Grooming FIM Score 4. Minimal Assistance (Patient = 75% or more. Needs touching.) Toileting Toileting Device Commode over Toilet Patient able to: Adjust clothes before Patient able to perform: 1/3 (33%) Toileting FIM Score 2. Maximal Assistance (Patient = 25% or more) Social interaction/Memory/Problem solving Social Interaction FIM Score 7. Complete Ocean (Interacts appropriately. Controls temper.) Memory FIM Score 7. Complete Ocean (Remembers people and routines.) Problem Solving FIM Score 7. Complete Ocean (Solves complex problems. Self corrects.) Transfers Mode of Locomotion: Wheelchair Bed/Chair/Wheelchair Transfers 4. Minimal Assistance (Patient = 75% or more. FIM Score Needs touching.) Toilet Transfers FIM Score 4. Minimal Assistance (Patient = 75% or more. Needs touching.) Patient transferred to: Tub Tub Transfers FIM Score 4. Minimal Assistance (Patient = 75% or more. Needs touching.) Shower Transfers FIM Score 3. Moderate Assistance (Patient = 50% or more. Some lifting.) Locomotion- Stairs Device used on Stairs Handrail/s Number of Stairs Ascended/ 2 Descended Patient used handrail/support: Yes Stairs FIM Score 1. Total Assistance (Pt. < 25%, 2 person assist, or <4 stairs.) Locomotion- walk/wheelchair Most Frequent Mode of Wheelchair Locomotion: Ambulation Distance 73 Walking FIM Score 4. Minimal Assistance (Patient = 75% or more. Minimum of 150 ft.) Wheelchair Propulsion Distance 340 Wheelchair FIM Score 6. Modified Ocean (Wheels a minimum of 150 ft.) Eating Eating Device Adjusted Table Height Eating FIM Score 4. Minimal Assistance (Patient = 75% or more) Dressing-Upper body Upper Body Dressing Device Marketing Analytics Analyst Patient retrieves clothing Yes: with appeals reviewer veteran items: Patient applies/removes UE n/a prosthesis or orthosis: Upper Body Dressing FIM Score 4. Minimal Assistance (Patient = 75% or more. Needs touching.) Dressing-lower body Lower Body Dressing Device Marketing Analytics Analyst/Stick Patient retrieves clothing Yes: With appeals reviewer veteran items: Patient applies/removes LE No prosthesis or orthosis: Lower Body Dressing FIM Score 4. Minimal Assistance (Patient = 75% or more. Needs touching.) - Labs CBC & Chem 7: 11/06/18 04:45 11/06/18 04:45 Labs: Laboratory Results - last 72 hr 11/04/18 11/04/18 11/05/18 18:29 22:16 08:58 WBC RBC Hgb Hct MCV MCH MCHC RDW Plt Count Sodium Potassium Chloride Carbon Dioxide Anion Gap BUN Creatinine Estimated GFR BUN/Creatinine Ratio Glucose POC Glucose 170 H 103 87 Calcium 11/05/18 11/05/18 11/05/18 12:29 18:10 22:02 WBC RBC Hgb Hct MCV MCH MCHC RDW Plt Count Sodium Potassium Chloride Carbon Dioxide Anion Gap BUN Creatinine Estimated GFR BUN/Creatinine Ratio Glucose POC Glucose 173 H 144 H 194 H Calcium 11/06/18 11/06/18 11/06/18 04:45 04:45 12:01 WBC 4.8 RBC 4.00 Hgb 11.5 Hct 35.4 MCV 89 MCH 29 MCHC 33 RDW 16.9 H Plt Count 213 Sodium 139 Potassium 3.8 Chloride 107.4 H Carbon Dioxide 20 L Anion Gap 15 BUN 12 Creatinine 1.1 Estimated GFR > 60 BUN/Creatinine Ratio 11 Glucose 147 H POC Glucose 148 H Calcium 8.8 11/06/18 11/06/18 11/07/18 16:33 21:47 08:25 WBC RBC Hgb Hct MCV MCH MCHC RDW Plt Count Sodium Potassium Chloride Carbon Dioxide Anion Gap BUN Creatinine Estimated GFR BUN/Creatinine Ratio Glucose POC Glucose 191 H 170 H 116 H Calcium 11/07/18 12:32 WBC RBC Hgb Hct MCV MCH MCHC RDW Plt Count Sodium Potassium Chloride Carbon Dioxide Anion Gap BUN Creatinine Estimated GFR BUN/Creatinine Ratio Glucose POC Glucose 148 H Calcium Assessment and Plan I69.354 CVA Non Dom L melisa:Secondary CVA prevention, discussed prognosis and need to control HTN/DM/HLD. Will monitor for shoulder hand syndrome and post stroke depression. Refusing statin, have started Questran. 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 M21.372 Left foot drop: AFO, continue therapy. May need custom AFO in future. Monitor I10 Hypertension: continue medications and adjust as needed for normotension E11.9 DM: Poorly controlled, A1c 10.3 at OSH, low-dose Lantus. Will need to follow up with PCP. Blood GLU has been good on low dose lantus. Reducing GLU checks and SSI due to patient/judaism preference I50.9 CHF: EF 30% monitor for exacerbation and need to diurese I25.9 CAD: s/p stent, cont ASA. Plavix d/c'd at OSH due to therapeutic lovenox E78.5 Hyperlipidemia: states she does not want to take statin due to muscle aches in past, refused other statins that are less likely to cause problems. Agreed to try Questran, welchol pills were too large. N18.9 CKD: monitor renal function closely. Refused blood draws at OSH K59.00 Constipation: Bowel program started, but she is refusing medications. Monitor. KUB ordered, suppository ordered Z73.6 ADL dysfunction: OT will work on improving ability to perform ADLs (including assistive devices) to increase independence and decrease caregiver burden and improve functional transfers and mobility training. R26.2 Difficulty walking: PT will work on gait training and proper use of assistive devices and advance as appropriate to use of stairs and outside ambulation on uneven surfaces. R26.81 Unsteadiness on feet: PT will work on improving static and dynamic sitting and standing balance as well as proper use of assistive devices to decrease risk of falls. R26.89 Abnormality of gait: PT will work to improve safety and efficiency of gait through neuromotor training and gait training along with instruction on proper use of assistive devices. M62.81 Muscle weakness: PT & OT will work on strengthening exercises to improve functional strength including mixture of closed and open kinetic chain exercises. R53.81 Debility: PT & OT will work on improving overall functional status to improve participation with ADLs, mobility and social involvement. R53.83 Fatigue: PT & OT will work on improving endurance through aerobic exercises and therapeutic activity while monitoring patients tolerance for activity and vital signs as needed. DVT ppx: Changed to eliquis (10mg BID x 7days then 5mg BID) for renal artery stenosis and possible pulmonary artery occlusion - review of OSH available records favored thrombus but not definitive, records requested twice and call placed for return call to discuss. Pain: Continue physical modalities in therapy and pain medications as needed to achieve functional pain control. Sleep: Monitor and address as needed. Previously on melatonin which we do not carry, low-dose trazodone seems to make her too drowsyhave DC'd Bowel: Milk of magnesia and suppositories. Monitor and address as needed. Appetite: Monitor and address as needed. Discharge planning: Pending therapy progress and care plan meeting. Will continue discussion with therapy team, SW, patient and family. Restrictions/ Precautions: Falls WB status: FWB Functional Hx: ADLs: Independent Cognition: Independent Mobility: No AD Barriers to Discharge: Decreased mobility and ability to perform self care, karthik nce deficits, weakness Estimated Length of Stay: 14-21 days, pending insurance approval and patient improvement, look to to family training on 11/09 and d/c 11/10 now. Discharge Destination: Home with family
[2018-11-07] MEDS: LANTUS SUB-Q SCH (23:15)
[2018-11-08] MEDS: LOPRESSOR PO SCH ×2 (11:00→22:44)
[2018-11-08] MEDS: QUESTRAN PO SCH ×2 (11:06→22:00)
[2018-11-08] MEDS: HALFPRIN EC PO SCH (11:06)
[2018-11-08] MEDS: ELIQUIS PO SCH ×2 (11:07→22:10)
[2018-11-08] MEDS: CLARITIN PO SCH ×2 (11:07→11:12)
[2018-11-08] MEDS: NORVASC PO SCH (11:10)
[2018-11-08] MEDS: MILK OF MAGNESIA PO PRN (15:02)
[2018-11-08] MEDS: TYLENOL PO PRN (23:22)
[2018-11-09] MEDS: LANTUS SUB-Q SCH ×2 (00:16→22:01)
[2018-11-09] MEDS: HALFPRIN EC PO SCH (08:25)
[2018-11-09] MEDS: LOPRESSOR PO SCH ×2 (08:25→21:40)
[2018-11-09] MEDS: CLARITIN PO SCH (08:25)
--- NOTE | 2018-11-09 17:33 | Progress Note ---
Subjective Date of service: 11/09/18 Principal diagnosis: Right MCA CVA Interval history: 63-year-old right-hand dominant female was found on the floor with left-sided weakness by her daughter. She presented to [facility] was noted to have NIHSS of [address] showed right MCA CVA. She was outside the window for TPA however was a candidate for thrombectomy and after undergoing this procedure was admitted to the ICU. She had fairly recovery from the thrombectomy but still has left-sided weakness. Further workup with labs showed hemoglobin A1c of 10.3, LDL 173, TSH 2.014. She was noted to have elevated troponins without chest pain which was monitored and managed medically. She underwent an echo which showed 30% ejection fraction. 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 Daughter states she was told the pulmonary artery occlusion was revisited and determined not to be an issue however I do not have paperwork to confirm that vascular surgery was consult at for the left renal artery occlusion versus severe stenosis and recommended no intervention but did ask for the patient to follow-up in clinic. She was placed on anti-coagulation level of Lovenox. Due to this she was also taken off of her prior Plavix dose. 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 Per review of records the mass has not been biopsied and a malignancy has not been ruled out however the patient's family again states that they have been told this was not cancerous in the past. Plan was also to follow-up for this mass and vascular clinic. 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 She also has a follow-up with neurology in 4-5 weeks. Patient is participating in therapy and making reasonable progress, LUE has intermittent improvement. Taking rest breaks as needed. +BM. Had dyspnea last n ight, I was notified by nursing. Vitals were stable, O2sats were good on RA. Nursing stated lungs were CTA. Likely anxiety, offered 2LNC and patient stated she felt better. Did not feel it was appropriate to give anxiety meds given situation. Patient is better today, vitals have been stable O2 sats >92% on RA. Denies SALCIDO, confusion, pain, palpitations, cough, N/V, or joint pain. No signs of shoulder hand syndrome, overall return in LUE not as robust as I would like. CN exam stable. Hematoma over left eye is improved - has cystic quality and patient has history of cysts, bruising improving. Blood glucose is controlled - reminded her that checking GLU QAC/HS was preferred and that since we stopped sliding scale her glucose has climbed. She said she was willing to go back to checking, will restart. BP controlled. Continue to monitor and adjust as needed. Discussed not getting up without assistance. Awaiting records requested from OSH. We have requested records twice. I did hear back from Dr Ramirez at OSH today. She confirmed that they were uncertain as to whether the renal and pulmonary artery stenosis was thrombus. She did state the primary reason for A/C was that the diagnosis of cancer was very strong. I told her that we were informed that had been ruled [facility] as we/they had been told. Discussed follow up with her and the change to Eliquis - no issues with change. We will continue A/C out of caution with a close follow up with vascular and hematology/oncology. Discussed this with patient and her daughter (Nelsy) on the phone and they are both in agreement. Discussed issues concerning stopping medication without MD's consent (DVT/PE/ etc) and issues surrounding falling and striking her head (go to ER for CT/eval). Patient and daughter in agreement. Discussed discharge equipment. Had a long discussion with patient and daughter (Nelsy) about unconfirmed diagnosis. Libra (Rehab Dir) was also in the room. Impressed upon them that her weight loss, fatigue, embolic CVA, and the suspicious mass could very well be cancer and she needed to follow up with Heme/Onc and Vascular for further guidance on diagnosis and treatment. Patient and daughter were receptive. Disc ussed secondary stroke prevention again. Gave patient copy of [place] discharge which had Neuro appt info and Daughter said she has the contact information for Heme/onc and vascular to schedule follow up. I advised follow up with PCP in 7- 10 days with GLU records, Neuro per scheduled appt, and as soon as possible for Heme/Onc and vascular. All records, vitals, labs and medications were reviewed. No other issues per patient, nursing or therapy. Objective - Exam Narrative Exam: MUSCULOSKELETAL SPECIALTY EXAM CONSTITUTIONAL: Well developed, well nourished, appropriately groomed. RIGHT hand dominant. RESPIRATORY: Clear to ascultation bilaterally, no increased work of breathing CARDIOVASCULAR: Regular Rate/ Rhythm, no swelling, edema or tenderness in BUE or BLE except for mild LLE swelling at the ankle. All extremities warm. GI: + bowel sounds, soft, NTTP, nondistended. INTEGUMENTARY: Normal except for small hematoma over left eye which is improving, monitor MUSCULOSKELETAL: BUE and BLE normal without defect, crepitus, subluxation, effusion, arthritic changes or TTP. SA EF WE EE FF FA HF KE ADF EHL APF R 5/5 5/5 5/5 5/5 5/5 5/5 5/5 5/5 5/5 5/5 5/5 L 3/5 3/5 3/5 3/5 3/5 3/5 4-/5 4-/5 3-/5 3/5 3/5 Left side weakness is variable and is decreased from her admission, seems to fluctuate day to day, monitor. No other increased symptoms/signs of worsening neurological function. ROM is decreased on the left upper and lower extremities (full passive) and within functional limits on the right upper and lower extremities. Tone is decreased on the left upper and lower extremities and normal on the right upper and lower extremities. NEURO: CN II-XII grossly intact except for left facial droop, decreased shoulder shrug on the left, tongue protrudes left. Degree of left visual field cut. Sensation intact in all extremities without extinction. Coordination intact in RUE, dysmetria noted on the LUE. No tremor noted in 4 extremities. Follows 2 step commands POSTURE and GAIT: Sitting posture good. Balance poor. Leans left, ambulating longer distance PSYCH: Awake, orientated x3, affect appears euthymic. Insight appears intact. - Constitutional Vitals: Vital Signs - 12hr 11/09/18 11/09/18 11/09/18 07:42 08:25 09:07 Temperature 36.4 C L Pulse Rate 93 H 93 H Respiratory 18 Rate Blood Pressure 110/85 110/85 O2 Sat by Pulse 96 96 Oximetry 11/09/18 15:44 Temperature 36.8 C Pulse Rate 85 Respiratory 18 Rate Blood Pressure 98/71 O2 Sat by Pulse 98 Oximetry - Allied health notes Allied health notes reviewed: nursing, PT, ST, OT FIMS assessment as documented by PT/OT/ST: Grooming Patient cleans teeth/dentures: Yes Patient condon/brushes hair: Yes Patient washes, rinses and Yes dries face: Patient washes, rinses and Yes dries hands: Patient shaves: No Patient applies make-up: No Patient performs (no make-up/ / (50%) shaving): Patient performs (w/ make-up/ / (40%) shaving): Grooming FIM Score 4. Minimal Assistance (Patient = 75% or more. Needs touching.) Toileting Toileting Device Commode over Toilet Patient able to: Adjust clothes before Patient able to perform: 1/3 (33%) Toileting FIM Score 2. Maximal Assistance (Patient = 25% or more) Social interaction/Memory/Problem solving Social Interaction FIM Score 7. Complete [place] (Interacts appropriately. Controls temper.) Memory FIM Score 7. Complete [place] (Remembers people and routines.) Problem Solving FIM Score 7. Complete [place] (Solves complex problems. Self corrects.) Transfers Mode of Locomotion: Wheelchair Bed/Chair/Wheelchair Transfers 4. Minimal Assistance (Patient = 75% or more. FIM Score Needs touching.) Toilet Transfers FIM Score 4. Minimal Assistance (Patient = 75% or more. Needs touching.) Patient transferred to: Tub Tub Transfers FIM Score 4. Minimal Assistance (Patient = 75% or more. Needs touching.) Shower Transfers FIM Score 3. Moderate Assistance (Patient = 50% or more. Some lifting.) Locomotion- Stairs Device used on Stairs Handrail/s Number of Stairs Ascended/ 2 Descended Patient used handrail/support: Yes Stairs FIM Score 1. Total Assistance (Pt. < 25%, 2 person assist, or <4 stairs.) Locomotion- walk/wheelchair Most Frequent Mode of Wheelchair Locomotion: Ambulation Distance 86 Walking FIM Score 4. Minimal Assistance (Patient = 75% or more. Minimum of 150 ft.) Wheelchair Propulsion Distance 340 Wheelchair FIM Score 6. Modified [place] (Wheels a minimum of 150 ft.) Eating Eating Device Adjusted Table Height Eating FIM Score 4. Minimal Assistance (Patient = 75% or more) Dressing-Upper body Upper Body Dressing Device Clothing Sorter Patient retrieves clothing Yes: with radio interference expert items: Patient applies/removes UE n/a prosthesis or orthosis: Upper Body Dressing FIM Score 4. Minimal Assistance (Patient = 75% or more. Needs touching.) Dressing-lower body Lower Body Dressing Device Clothing Sorter/Stick Patient retrieves clothing Yes: With radio interference expert items: Patient applies/removes LE No prosthesis or orthosis: Lower Body Dressing FIM Score 4. Minimal Assistance (Patient = 75% or more. Needs touching.) - Labs CBC & Chem 7: 11/06/18 04:45 11/06/18 04:45 Labs: Laboratory Results - last 72 hr 11/06/18 11/06/18 11/07/18 16:33 21:47 08:25 POC Glucose 191 H 170 H 116 H 11/07/18 11/07/18 11/07/18 12:32 16:45 22:59 POC Glucose 148 H 135 H 125 H 11/08/18 11/08/18 11/08/18 10:14 12:27 17:08 POC Glucose 149 H 188 H 181 H 11/08/18 21:56 POC Glucose 208 H Assessment and Plan I69.354 CVA Non Dom L melisa:Secondary CVA prevention, discussed prognosis and need to control HTN/DM/HLD. Will monitor for shoulder hand syndrome and post stroke depression. Refusing statin, have started Questran. 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 M21.372 Left foot drop: AFO, continue therapy. May need custom AFO in future. Monitor I10 Hypertension: continue medications and adjust as needed for normotension E11.9 DM: Poorly controlled, A1c 10.3 at OSH, low-dose Lantus. Will need to follow up with PCP. Blood GLU has been good on low dose lantus. Reducing GLU checks and SSI due to patient/buddhism preference I50.9 CHF: EF 30% monitor for exacerbation and need to diurese I25.9 CAD: s/p stent, cont ASA. Plavix d/c'd at OSH due to therapeutic lovenox E78.5 Hyperlipidemia: states she does not want to take statin due to muscle aches in past, refused other statins that are less likely to cause problems. Agreed to try Questran, welchol pills were too large. N18.9 CKD: monitor renal function closely. Refused blood draws at OSH K59.00 Constipation: Bowel program started, but she is refusing medications. Monitor. KUB ordered, suppository ordered Z73.6 ADL dysfunction: OT will work on improving ability to perform ADLs (including assistive devices) to increase independence and decrease caregiver burden and improve functional transfers and mobility training. R26.2 Difficulty walking: PT will work on gait training and proper use of assistive devices and advance as appropriate to use of stairs and outside ambulation on uneven surfaces. R26.81 Unsteadiness on feet: PT will work on improving static and dynamic sitting and standing balance as well as proper use of assistive devices to decrease risk of falls. R26.89 Abnormality of gait: PT will work to improve safety and efficiency of gait through neuromotor training and gait training along with instruction on pr oper use of assistive devices. M62.81 Muscle weakness: PT & OT will work on strengthening exercises to improve functional strength including mixture of closed and open kinetic chain exercises. R53.81 Debility: PT & OT will work on improving overall functional status to improve participation with ADLs, mobility and social involvement. R53.83 Fatigue: PT & OT will work on improving endurance through aerobic exercises and therapeutic activity while monitoring patients tolerance for activity and vital signs as needed. DVT ppx: Changed to eliquis (10mg BID x 7days then 5mg BID) for possible cancer, renal artery stenosis and possible pulmonary artery occlusion - review of OSH available records favored thrombus. Pain: Continue physical modalities in therapy and pain medications as needed to achieve functional pain control. Sleep: Monitor and address as needed. Previously on melatonin which we do not carry, low-dose trazodone seems to make her too drowsyhave DC'd Bowel: Milk of magnesia and suppositories. Monitor and address as needed. Appetite: Monitor and address as needed. Discharge planning: Pending therapy progress and care plan meeting. Will continue discussion with therapy team, SW, patient and family. Restrictions/ Precautions: Falls WB status: FWB Functional Hx: ADLs: Independent Cognition: Independent Mobility: No AD Barriers to Discharge: Decreased mobility and ability to perform self care, balance deficits, weakness Estimated Length of Stay: 14-21 days, pending insurance approval and patient improvement, look to to family training on 11/09 and d/c 11/10 now. Discharge Destination: Home with family Had prolonged discussion with patient and daughter concerning secondary stroke prevention and undiagnosed but suspected cancer and further follow up care they needed to seek after discharge. Greater than 45mins utilized face to face with additional time for documentation and chart review.
[2018-11-09] MEDS ORDERED: D50W (25GM) Syringe IV PRN (17:43)
[2018-11-09] MEDS: QUESTRAN PO SCH ×2 (20:02→21:40)
[2018-11-09] MEDS: ELIQUIS PO SCH ×2 (20:03→21:39)
[2018-11-09] MEDS: NORVASC PO SCH (22:01)
[2018-11-09] MEDS: HumaLOG SUB-Q SCH (22:06)
[2018-11-10] MEDS: NORVASC PO SCH (08:00)
[2018-11-10] MEDS: LOPRESSOR PO SCH (08:00)
[2018-11-10] MEDS: HumaLOG SUB-Q SCH ×2 (08:15→12:30)
[2018-11-10] MEDS: ELIQUIS PO SCH ×2 (08:44→09:58)
[2018-11-10] MEDS: HALFPRIN EC PO SCH (08:45)
[2018-11-10] MEDS: QUESTRAN PO SCH (08:49)
[2018-11-10] MEDS: CLARITIN PO SCH (08:49)
--- NOTE | 2018-11-10 11:20 | Discharge Summary ---
Providers - Providers Date of Admission: 10/13/18 15:43 Date of discharge: 11/10/18 Attending physician: SEE LAKE III, MD 10/13/18 14:24 Consult to Dietitian/Nutrition [CONS] Routine Physician Instructions: Reason For Exam: Poor DM control - A1c 10.3 Reason for Consult: Diet education Occupational Therapy Evaluate and Treat [CONS] Routine Comment: Reason For Exam: R MCA CVA - Eval & Treat ADL dysfunction Physical Therapy Evaluation and Treat [CONS] Routine Comment: Reason For Exam: R MCA CVA - Eval & Treat mobility dysfunction Speech Therapy Evaluation and Treat [CONS] Routine Reason For Exam: R MCA CVA - Eval & Treat cognitive, swallow dysfun 10/13/18 14:37 Consult to Case Management [CONS] Routine Services Needed at Discharge: Home Health Services Notified:: DITCHERclient care manager physician: SMALL BUSINESS DIRECTOR Hospitalization Reason for admission: CVA Condition: Fair Pertinent studies: KUB dated 10/16/2018 showed moderate stool throughout the colon and rectum. Head CT dated 10/23/2018 showed subacute ischemic infarct with an area approximate 5.3 x 2.1 cm throughout the right basal ganglia and the remainder of the exam was normal. Orbit CT dated 10/23/2018 showed mild left periorbital swelling with no facial fractures or other acute changes. Procedures: N/A Hospital course: 63-year-old right-hand dominant female was found on the floor with left-sided weakness by her daughter. She presented to [facility] was noted to have NIHSS of [address] showed right MCA CVA. She was outside the window for TPA however was a candidate for thrombectomy and after undergoing this procedure was admitted to the ICU. She had fairly recovery from the thrombectomy but still has left-sided weakness. Further workup with labs showed hemoglobin A1c of 10.3, LDL 173, TSH 2.014. She was noted to have elevated troponins without chest pain which was monitored and managed medically. She underwent an echo which showed 30% ejection fraction. 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 Daughter states she was told the pulmonary artery occlusion was revisited and determined not to be an issue however I do not have paperwork to confirm that vascular surgery was consult at for the left renal artery occlusion versus severe stenosis and recommended no intervention but did ask for the patient to follow-up in clinic. She was placed on anti-coagulation level of Lovenox. Due to this she was also taken off of her prior Plavix dose. 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 Per review of records the mass has not been biopsied and a malignancy has not been ruled out however the patient's family again states that they have been told this was not cancerous in the past. Plan was also to follow-up for this mass and vascular clinic. Patient is a [employer] and does not want any blood products. She also has a follow-up with neurology in 4-5 weeks. During examination and discussion medications with the patient she states that she does not take statins and has had muscle aches with them in the past. Patient made fair progress with therapy during her stay with us in rehabilitation. She did lose ground with her left upper extremity and it remains intermittent with her ability to move it. She does not have full abduction of her shoulder or fingers at this time. Her ambulation improved however she still has issues with loss of balance and as such is still a fall risk. She has used everything from a hemiwalker to a rolling walker to using the handrails on the ly, has a slow theodore, and utilizes an AFO. As far speech her diet was upgraded to regular consistency with thin liquids utilizing strategies and taking small bites. She did not show signs of aspiration since being advanced to this level of diet however it would be beneficial to have her monitored briefly by home health speech to ensure that she does not start eating too quickly and aspirating. During her stay she did have a fall while on therapeutic level of Lovenox which resulted in small hematoma and bruise around the left eye. CT scan was done to examine her head as well as her orbit and there were no new findings associated with this injury. Bruising has improved over time. The initial hematoma over the left eye now has a bit of a cystic character to it. Discussed with the patient and the daughter numerous times about her risk for falling and head injury while on anticoagulation and her need to follow up in the ER immediately if she does fall and strike her head after discharge. She was transitioned to Eliquis due to the family not wanting to give injections of Lovenox. Was able to speak with from [facility] about some of the ambiguity in her medical record concerning the diagnosis for which she was being anticoagulated. The stenosis/thrombosis/occlusion seen in the renal artery and pulmonary artery was only a part of the reasoning for anticoagulation. 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 Family originally told the [facility] physicians as well as myself that they were assured that this was checked on and was not cancer however the outside physician was able to contact the physician at [facility] and was informed that this was not the case and that with overall picture of her condition that they were leaning heavily towards a cancer diagnosis. After learning this new information I met with the patient, her daughter and the rehabilitation technician and discussed with her the importance of following up with her physicians to determine if this is cancer, and if it is what type and how best to treat it. Did inform her that I do not know whether or not she has cancer however everyone who looked at the imaging and all of her other records at the outside hospitals (some of which I do not have access to) were highly suspicious that this was cancer. Specifically she needs to follow-up with vascular surgery (daughter assured me she has contact information for this physician, I do not have any information regarding this physician), hematology/oncology (daughter assured me she has contact information for this physician, I do not have any information regarding this physician), neurology clinic at [place] (appointment was already scheduled by [place] and I gave her a copy of the discharge summary which included the contact and scheduling information) and PCP in 7-10 days. The EMR system is having difficulty with printing ambulatory prescriptions as such the DME and home health prescriptions were handwritten and include the following bedside commode, standard wheelchair with left adjustable foot rest and left arm trough and a standard seat cushion, left AFO, home health referral for nursing, PT, OT, STAFFING ASSISTANT. Copies were made and placed in the chart as well as given to the patient. Several times during her stay we also discussed secondary stroke prevention. Patient should continue taking aspirin and ideally would be on a statin however she refused statin and we were able to get her to take Questran as the only alternative available. She was also advised to control her blood glucose levels and her blood pressure. She was transitioned to Lantus at a low dose which seems to control her blood glucose fairly well but she will still need sliding scale insulin. At one point later in the stay she was complaining about the number of times she was having her blood glucose checked and receiving sliding scale insulin so I discontinued sliding scale and her blood glucose levels increased more than either she or I were comfortable with. At this point she agreed to go back to checking her blood glucose on a regular basis and utilizing sliding scale. She has been advised to log her blood glucose values daily and present this to her PCP for further management and adjustment. Disposition: DC/TX- HOME UNDER [facility] Time spent for discharge: greater than 30 minutes - Discharge Diagnoses (1) Hemiplegia and hemiparesis following cerebral infarction affecting left non- dominant side Status: Acute (2) Dysphagia following cerebral infarction Status: Acute (3) Essential (primary) hypertension Status: Chronic (4) Type 2 diabetes mellitus without complications Status: Chronic Qualifiers: Diabetes mellitus public health staff nurse insulin use: without usp use Qualified Code(s): E11.9 - Type 2 diabetes mellitus without complications (5) Heart failure Status: Chronic Qualifiers: Heart failure type: unspecified Heart failure chronicity: chronic Qualified Code(s): I50.9 - Heart failure, unspecified (6) Chronic ischemic heart disease Status: Chronic Core Measure Documentation - Palliative Care Palliative Care/ Comfort Measures: Not Applicable - Core Measures Any of the following diagnoses?: heart failure, stroke - VTE Discharge Requirements Deep Vein Thrombosis/Pulmonary Embolism Present on Admission: Yes Has pt received <5 days of overlap therapy or INR<2.0: No Anticoagulant overlap therapy prescribed at discharge: No Contraindication No Overlap Therapy order at DC: Not Indicated (Presumed PE vs Cancer, Patient is on Eliquis. F/U with Vascular and Heme/Onc) - Heart Failure Discharge Requirements NICHOLAS/ARB for LVSD if EF <40%: No Reason for no NICHOLAS/ARB: Renal impairment Beta bear at discharge: Yes - Stroke Discharge Requirements Statin for LDL = or >70 mg/dl on DC: No (Patient refused all statins due to prior reaction. On questran) Reason for no statin on DC: Patient Refusal Anticoag for atrial fib/atrial flutter: Not Applicable Antithrombotic for ischemic stroke: Yes Stroke additional comments: Was on ASA/Plavix at time of CVA, possible cancer diagnosis. Discharged on Eliquis Exam - Physical Exam Narrative exam: MUSCULOSKELETAL SPECIALTY EXAM CONSTITUTIONAL: Well developed, well nourished, thin, appropriately groomed. RIGHT hand dominant. RESPIRATORY: Clear to ascultation bilaterally, no increased work of breathing CARDIOVASCULAR: Regular Rate/ Rhythm, no swelling, edema or tenderness in BUE or BLE except for mild LLE swelling at the ankle. All extremities warm. GI: + bowel sounds, soft, NTTP, nondistended. INTEGUMENTARY: Normal except for small hematoma over left eye which is improving, monitor MUSCULOSKELETAL: BUE and BLE normal without defect, crepitus, subluxation, effusion, arthritic changes or TTP. SA EF WE EE FF FA HF KE ADF EHL APF R 5/5 5/5 5/5 5/5 5/5 5/5 5/5 5/5 5/5 5/5 5/5 L 3/5 3/5 3/5 3/5 3/5 3/5 4-/5 4-/5 3-/5 3/5 3/5 Left side weakness is variable and is decreased from her admission, seems to fluctuate day to day, monitor. No other increased symptoms/signs of worsening neurological function. ROM is decreased on the left upper and lower extremities (full passive) and within functional limits on the right upper and lower extremities. Tone is decreased on the left upper and lower extremities and normal on the right upper and lower extremities. NEURO: CN II-XII grossly intact except for left facial droop, decreased shoulder shrug on the left, tongue protrudes left. Degree of left visual field cut. Sensation intact in all extremities without extinction. Coordination intact in RUE, dysmetria noted on the LUE. No tremor noted in 4 extremities. Follows 2 step commands POSTURE and GAIT: Sitting posture good. Balance poor. Leans left, ambulating longer distance PSYCH: Awake, orientated x3, affect appears euthymic. Insight appears intact. - Constitutional Vitals: Temp Pulse Resp BP Pulse Ox 36.6 C 85 18 98/68 96 11/10/18 07:27 11/10/18 07:27 11/10/18 07:27 11/10/18 07:27 11/10/18 07:27 - Allied Health Allied health notes reviewed: nursing, PT, ST, OT Plan Activity: advance as tolerated, no driving until cleared by PCP, up only with assistance, fall precautions Weight Bearing Status: Full Weight Bearing Diet: diabetic Special Instructions: record daily BP diary, record blood sugar diary, physical therapy, occupational therapy, home health RN Durable Medical Equipment Needed Upon Discharge: Wheelchair, Bedside Commode Follow up with: PRIMARY CARE,MD [Primary Care Provider] - 7 Days Prescriptions: Insulin Glargine [Lantus VIAL] 5 units SUB-Q QHS 30 Days units Aspirin EC [Aspirin Enteric Coated TAB] 81 mg PO QDAY #30 tablet Bisacodyl [Dulcolax suppos] 10 mg OK QDAY PRN #15 supp.rect PRN Reason: Constipation unrelieved by MOM Apixaban [Eliquis] 10 mg PO Q12HR #22 tablet Apixaban [Eliquis] 5 mg PO Q12HR #60 tablet Lispro Insulin [Humalog] 0 unit SUB-Q ACHS 30 Days units Metoprolol [Lopressor TAB] 25 mg PO BID #60 tablet amLODIPine [Norvasc] 5 mg PO QDAY #30 tablet Cholestyramine (with Sugar) [Questran] 4 gm PO BID #60 packet
[2018-11-10 12:00] VITALS: BP 127/90
[2018-11-15] MEDS ORDERED: ELIQUIS PO SCH (10:00)
== END 2018-11-10 13:10 | disposition home health service (06) | DRG 56 ==
LOC: UNDOADMIN 14:02 → 3A 14:02 → 3B 10-13 15:43
PROVIDERS: ADMIT Physical Medicine & Rehabilitation; ATTEND Physical Medicine & Rehabilitation
DX: I69.354 Hemiplegia and hemiparesis following cerebral infarction affecting left non-dominant side (principal); I63.9 Cerebral infarction, unspecified; I13.0 Hypertensive heart and chronic kidney disease with heart failure and stage 1 through stage 4 chronic kidney disease, or unspecified chronic kidney disease; I50.9 Heart failure, unspecified; N18.9 Chronic kidney disease, unspecified; I25.10 Atherosclerotic heart disease of native coronary artery without angina pectoris; E78.5 Hyperlipidemia, unspecified; R13.10 Dysphagia, unspecified; M21.372 Foot drop, left foot; E11.22 Type 2 diabetes mellitus with diabetic chronic kidney disease; E11.65 Type 2 diabetes mellitus with hyperglycemia; K59.00 Constipation, unspecified; R53.81 Other malaise; M62.81 Muscle weakness (generalized); Z90.49 Acquired absence of other specified parts of digestive tract; Z90.710 Acquired absence of both cervix and uterus; Z95.5 Presence of coronary angioplasty implant and graft; Z88.1 Allergy status to other antibiotic agents
CPT/HCPCS: 36415; 70450; 70480; 74018; 80048; 80053; 82962; 85025; 85027; G0378; G0515; A9270-GY; J1650; J1815